=== PATIENT | female | born 2000 | race African-American/Black ===

== ENCOUNTER 2022-12-13 14:33 | Emergency (ER) | payer MEDICAID, SELFPAY ==
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
[2022-12-13 14:39] VITALS: BP 125/82; PULSE 86; RESP 16; TEMP 36.4; O2SAT 98; BMI 33.8
--- NOTE | 2022-12-13 14:39 | ECG_ITS ---
Test Reason : DIZZINESS Blood Pressure : / mmHG Vent. Rate : 073 BPM Atrial Rate : 073 BPM P-R Int : 144 ms QRS Dur : 094 ms QT Int : 384 ms P-R-T Axes : 048 050 021 degrees QTc Int : 423 ms Normal sinus rhythm with sinus arrhythmia Normal ECG No previous ECGs available Referred By: Ngoc Tripp Electronically Signed By:TITO LUA MD
[2022-12-13 15:01] LABS: MANUAL DIFF FLAG NO
[2022-12-13 15:03] LABS: Basophils Percent Auto 0.5 % (0-2); Eosinophils Absolute Auto 0.2 X10*3/uL (0.0-0.4); Eosinophils Percent Auto 2.6 % (0-4); Hematocrit 44.7 % (37.0-47.0); Imm Gran Abs Auto 0.01 X10*3/uL (0.00-0.03); Imm Gran Pct Auto 0.2 % (0.0-0.4); Lymphocytes Absolute Auto 2.6 X10*3/uL (1.2-4.9); Lymphocytes Percent Auto 40.2 % (20-40); Mean Corpuscular HGB Conc 33.6 g/dl (31.0-35.0); Mean Corpuscular Hemoglobin 28.1 pg (27.0-33.0); Mean Corpuscular Volume 83.9 fL (80.0-98.0); Mean Platelet Volume 10.3 fL (9.4-12.3); Monocytes Absolute Auto 0.5 X10*3/uL (0.1-1.2); Monocytes Percent Auto 7.2 % (2-11); Neutrophils Absolute Auto 3.2 x10*3/uL (2.0-8.3); Neutrophils Percent Auto 49.3 % (45-73); Platelet Count 233 X10*3/uL (160-400); Red Blood Count 5.33 X10*6/uL (4.20-5.50); Red Cell Distribution Width 12.4 % (11.0-16.0); White Blood Count 6.5 X10*3/uL (4.8-10.8)
[2022-12-13 15:06] LABS: Urine Pregnancy NEGATIVE (NEGATIVE)
[2022-12-13 15:07] LABS: UPreg QC Valid YES
[2022-12-13 15:18] LABS: COVID-19 Test Negative (Negative); IDNOW Serial# 16C4AD1C; IDNOW Serial# BCCEAD1C; Influenza A Negative (Negative); Influenza B2 Negative (Negative)
[2022-12-13 15:23] LABS: Alanine Aminotransferase 24 U/L (0-31); Albumin Level 4.1 g/dL (3.5-5.0); Alkaline Phosphatase 64 U/L (39-117); Anion Gap 16 (12-20); Aspartate Amino Transferase 18 U/L (5-31); Bilirubin Direct 0.2 mg/dL (0.0-0.5); Bilirubin Total 0.6 mg/dL (0.0-1.0); Blood Urea Nitrogen 9 mg/dL (9-16); Calcium 9.4 mg/dL (8.4-10.2); Carbon Dioxide 20 mmol/L (22-29); Chloride 111 mmol/L (96-108); Creatinine Clr Calc Pharmacy 140.5; Estimated Glomerular Filt Rate > 60; Glucose Random 88 mg/dL (60-115); Magnesium 1.7 mg/dL (1.6-2.6); Potassium 3.7 mmol/L (3.3-5.1); Sodium 143 mmol/L (135-145); Total Protein 6.5 g/dL (6.5-8.0)
[2022-12-13 15:30] LABS: Troponin-I High Sensitivity < 3.5 ng/L (<3.5-17.0)
[2022-12-13] MEDS: Butalb/Acetamin/Caff 50/325/40 TABLET 2 TAB PO (16:30)
== END 2022-12-13 16:52 | disposition home or self-care (01) ==
PROVIDERS: Physician Assistant; Emergency Provider Internal Medicine; PCP Internal Medicine Geriatric Medicine
DX: G43.909 Migraine, unspecified, not intractable, without status migrainosus (principal); B34.9 Viral infection, unspecified; R42 Dizziness and giddiness; F41.1 Generalized anxiety disorder; F43.0 Acute stress reaction; Z20.822 Contact with and (suspected) exposure to COVID-19; Z20.828 Contact with and (suspected) exposure to other viral communicable diseases; Z79.899 Other long term (current) drug therapy
CPT/HCPCS: 36415; 80048; 80076; 81025; 83735; 84484; 85025; 87502; 87635; 93005; 99284

== ENCOUNTER 2023-12-31 19:01 | Emergency (ER) | payer MEDICAID, SELFPAY ==
--- NOTE | ~2023-12-31 | US_ITS ---
EXAMINATION: US ABDOMEN LIMITED CLINICAL INFORMATION: Right upper quadrant pain. COMPARISON: None available. TECHNIQUE: Real-time imaging of the right upper quadrant abdominal viscera. FINDINGS: PANCREAS: The visualized portion of the pancreas head and body are normal, portion of the pancreatic body and tail, not visualized are obscured by bowel gas. LIVER: Normal. The liver is normal in size. The liver contour is normal. Parenchymal echogenicity is normal. No focal hepatic lesion. There is no intrahepatic biliary duct dilatation seen. GALLBLADDER: Gallbladder has been removed. COMMON BILE DUCT: Normal in caliber measuring 0.35 cm in diameter. RIGHT KIDNEY: Normal. No hydronephrosis. No renal calculi or focal parenchymal lesions. The kidney measures 9.4 cm in maximum dimension. FREE FLUID: None. US/US abdomen limited IMPRESSION: 1. No ultrasound explanation for patient's pain symptoms. 2. Gallbladder has been removed.
--- NOTE | ~2023-12-31 | CT_ITS ---
EXAMINATION: CT ABDOMEN AND PELVIS WITHOUT CONTRAST CLINICAL INFORMATION: Right flank pain. COMPARISON: None available. TECHNIQUE: Multidetector volumetric imaging was performed from the superior aspect of the liver through the pubic symphysis. Sagittal and coronal reformatted images were obtained on the technologist's workstation. This CT examination was performed using dose optimization techniques as appropriate, variously including the following: *Automated exposure control *Adjustment of mA and/or kV according to patient size (this includes techniques or standardized protocols for targeted exams where dose is matched to indication/reason for exam; i.e. extremities or head) *Use of iterative reconstruction technique DLP: 740 mGy-cm FINDINGS: LUNG BASES: The visualized lung bases are unremarkable. LIVER, GALLBLADDER, AND BILIARY TREE: The liver is normal in size, shape, and attenuation. No focal hepatic lesion or biliary ductal dilatation is present. There has been a prior cholecystectomy. PANCREAS: Unremarkable. SPLEEN: Unremarkable. ADRENAL GLANDS: Unremarkable. KIDNEYS AND URETERS: The kidneys are normal in size, shape, and attenuation. No hydronephrosis, hydroureter, or calculi seen. No perinephric stranding. BLADDER: Unremarkable. GASTROINTESTINAL TRACT: There are diverticula of the ascending and transverse colon with infiltrative change along diverticula of the cecum/proximal ascending colon with mild associated colonic thickening. The appendix is visualized and is within normal limits. ABDOMINAL WALL: No significant hernia is appreciated. LYMPH NODES: Normal. VASCULAR: Unremarkable. PELVIC VISCERA: The uterus is enlarged measuring up to 12.6 cm. OSSEOUS STRUCTURES: Unremarkable. CT/CT abdomen pelvis wo IV con IMPRESSION: 1. Findings consistent with diverticulitis of the cecum/proximal ascending colon. 2. Enlarged uterus. 3. Prior cholecystectomy. Fleischner guidelines were followed.
[2023-12-31 20:02] VITALS: BP 132/74; PULSE 91; RESP 16; TEMP 36.8; O2SAT 97; BMI 38.1
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
--- NOTE | 2023-12-31 20:41 | MHC.EDTECH ---
Patient brought into triage area,labs,and a urine sample obtained and sent to lab.
[2023-12-31 20:50] LABS: Basophils Percent Auto 0.5 % (0-2); Eosinophils Absolute Auto 0.1 X10*3/uL (0.0-0.4); Eosinophils Percent Auto 1.6 % (0-4); Hematocrit 41.5 % (37.0-47.0); Hemoglobin 13.6 g/dl (12.0-16.0); Imm Gran Abs Auto 0.01 X10*3/uL (0.00-0.03); Imm Gran Pct Auto 0.1 % (0.0-0.4); Lymphocytes Absolute Auto 2.5 X10*3/uL (1.2-4.9); Lymphocytes Percent Auto 32.9 % (20-40); MANUAL DIFF FLAG NO; Mean Corpuscular HGB Conc 32.8 g/dl (31.0-35.0); Mean Corpuscular Hemoglobin 27.2 pg (27.0-33.0); Mean Platelet Volume 9.3 fL (9.4-12.3); Monocytes Absolute Auto 0.6 X10*3/uL (0.1-1.2); Monocytes Percent Auto 7.5 % (2-11); Neutrophils Absolute Auto 4.4 x10*3/uL (2.0-8.3); Neutrophils Percent Auto 57.4 % (45-73); Platelet Count 355 X10*3/uL (160-400); Red Cell Distribution Width 13.6 % (11.0-16.0); White Blood Count 7.6 X10*3/uL (4.8-10.8)
[2023-12-31 20:51] LABS: Appearance Urine Clear; Color Urine Yellow; Glucose Urine UA Negative (Negative); Leukocyte Esterase Urine Small (1+) (Negative); Nitrite Urine Negative (Negative); PH 5.5 (5.0-9.0); UMIC TRIGGER UACC YES; Urine Blood Moderate (2+) (Negative); Urine Ketones Negative (Negative); Urine Protein Negative (Neg-Trace)
[2023-12-31 20:56] LABS: Bacteria Urine None Seen (None Seen); Hyaline Casts Urine 0-2 /LPF (0-2); RBC Urine >20 /HPF (0-2); Squamous Epithelial Cell Urine 0-2 /HPF (0-2); UACC Culture Trigger YES
[2023-12-31 21:03] LABS: Alanine Aminotransferase 26 U/L (0-31); Alkaline Phosphatase 87 U/L (39-117); Anion Gap 13 (12-20); Aspartate Amino Transferase 17 U/L (5-31); Bilirubin Total 0.2 mg/dL (0.0-1.0); Blood Urea Nitrogen 15 mg/dL (9-16); Calcium 9.4 mg/dL (8.4-10.2); Carbon Dioxide 24 mmol/L (22-29); Chloride 109 mmol/L (96-108); Estimated Glomerular Filt Rate > 60; Glucose Random 90 mg/dL (60-115); Lipase 31 U/L (8-78); Sodium 142 mmol/L (135-145); Total Protein 7.3 g/dL (6.5-8.0)
[2023-12-31 23:22] VITALS: BP 145/73; PULSE 69; RESP 16; TEMP 36.9; O2SAT 98
[2023-12-31] MEDS: Morphine Sulfate Immed Release 15 MG TABLET PO (23:24)
[2024-01-01] MEDS: Piperacillin Sodium/Tazobactam 3.375 GM in 0.9 % Sodium Chloride 50 ML IV (00:47)
[2024-01-01] MEDS: Ketorolac Tromethamine 30 MG/ML VIAL IVPUSH (00:47)
[2024-01-01] MEDS: 0.9 % Sodium Chloride 1,000 ML 999 ML IV (00:50)
[2024-01-01 00:57] LABS: Lactic Acid 1.8 mmol/L (0.5-2.0)
--- NOTE | 2024-01-01 01:47 | PC.NURSE ---
PT in bed, moaning and reporting 10/10 pain. notified, IV placed, fluids, abx and pain meds administered per orders.
== END 2024-01-01 03:49 | disposition home or self-care (01) ==
PROVIDERS: Physician Assistant Medical; Emergency Provider Internal Medicine; PCP Internal Medicine Geriatric Medicine
DX: K57.32 Diverticulitis of large intestine without perforation or abscess without bleeding (principal); R10.31 Right lower quadrant pain; R10.9 Unspecified abdominal pain; Z90.49 Acquired absence of other specified parts of digestive tract
CPT/HCPCS: 36415; 74176; 76705; 80053; 81001; 83605; 83690; 85025; 87086; 96374; 96375; 99284; J1885; J2543

== ENCOUNTER 2024-03-24 14:32 | Outpatient (REF) | payer MEDICAID, SELFPAY ==
[2024-03-24 16:18] LABS: Hematocrit 41.7 % (37.0-47.0); Hemoglobin 13.8 g/dl (12.0-16.0); Mean Corpuscular HGB Conc 33.1 g/dl (31.0-35.0); Mean Corpuscular Hemoglobin 27.8 pg (27.0-33.0); Mean Corpuscular Volume 84.1 fL (80.0-98.0); Mean Platelet Volume 10.6 fL (9.4-12.3); Platelet Count 284 X10*3/uL (160-400); Red Blood Count 4.96 X10*6/uL (4.20-5.50); Red Cell Distribution Width 14.1 % (11.0-16.0); White Blood Count 6.7 X10*3/uL (4.8-10.8)
[2024-03-24 16:37] LABS: Alanine Aminotransferase 22 U/L (0-31); Albumin Level 4.3 g/dL (3.5-5.0); Alkaline Phosphatase 59 U/L (39-117); Anion Gap 14 (12-20); Aspartate Amino Transferase 16 U/L (5-31); Bilirubin Total 0.6 mg/dL (0.0-1.0); Blood Urea Nitrogen 13 mg/dL (9-16); Calcium 9.6 mg/dL (8.4-10.2); Carbon Dioxide 22 mmol/L (22-29); Chloride 109 mmol/L (96-108); Cholesterol 176 mg/dL (<200); Estimated Glomerular Filt Rate > 60; Glucose Random 91 mg/dL (60-115); HDL Cholesterol 42 mg/dL (>40); LDL Cholesterol Calculated 116 mg/dL (<100); Potassium 3.8 mmol/L (3.3-5.1); Sodium 141 mmol/L (135-145); Total Protein 7.3 g/dL (6.5-8.0); Triglycerides 94 mg/dL (<150)
[2024-03-24 16:48] LABS: Estimated Average Glucose 100 mg/dL; Hemoglobin A1c % 5.1 % (<6.0)
[2024-03-24 16:58] LABS: TSH reflex Free T4 0.96 uIU/mL (0.32-4.0); Vitamin D 25-OH Total 37.4 ng/mL (>30)
[2024-03-25 10:15] LABS: Syphilis Screen Nonreactive (Nonreactive)
[2024-03-25 10:27] LABS: HBc Num1 0.11 S/CO (0.00-0.79); HBsAGNum1 0.22 S/CO (0.00-0.99); HIV AB/AG Nonreactive (Nonreactive); HIV Num 1 0.04 S/CO (0.00-0.99); Hepatitis B Core Antibody Nonreactive (Nonreactive); Hepatitis B Surface Antigen Negative (Negative); ~HepC Num1 0.09 S/CO (0.00-0.79); ~Hepatitis C Antibody Nonreactive (Nonreactive)
[2024-03-26 21:53] LABS: TS Negative Control Passed; TS Panel A 0; TS Panel B 0; TS Positive Control Passed; TSpotTB Negative (Negative)
== END 2024-03-24 14:33 | disposition home or self-care (01) ==
LOC: HO.HHCL 14:32
PROVIDERS: Visit Provider Student in an Organized Health Care Education/Training Program
DX: Z00.00 Encounter for general adult medical examination without abnormal findings (principal)
CPT/HCPCS: 36415; 80053; 80061; 82306; 83036; 84443; 85027; 86481; 86704; 86780; 86803; 87340; 87389

== ENCOUNTER → 2024-09-26 11:21 | Outpatient (BNVA) | payer MEDICAID, SELFPAY | PROVIDERS: PCP Student in an Organized Health Care Education/Training Program; Visit Provider Physician Assistant Surgical ==

== ENCOUNTER 2024-10-09 07:53 | Outpatient (AMB) | payer MEDICAID, SELFPAY ==
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
[2024-10-09 10:29] VITALS: BMI 38.8
== END 2024-10-09 10:59 | disposition home or self-care (01) ==
LOC: HO.HBS 07:53
PROVIDERS: PCP Student in an Organized Health Care Education/Training Program; Visit Provider Surgery
DX: E66.812 Obesity, class 2 (principal); E66.09 Other obesity due to excess calories; Z68.38 Body mass index [BMI] 38.0-38.9, adult; K21.9 Gastro-esophageal reflux disease without esophagitis
CPT/HCPCS: 99204

== ENCOUNTER 2024-10-11 09:05 | Day surgery (SDC) | payer MEDICAID, SELFPAY ==
[2024-10-11 09:34] VITALS: BMI 38.9
[2024-10-11 09:45] VITALS: BP 122/57; PULSE 67; RESP 16; TEMP 36.4; O2SAT 98
[2024-10-11 09:52] LABS: UPreg QC Valid YES; Urine Pregnancy NEGATIVE (NEGATIVE)
[2024-10-11] MEDS: Lactated Ringers 1,000 ML 80 ML IVCONT (09:56)
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
--- NOTE | 2024-10-11 10:01 | MHC.SHP ---
Pre-Procedural Eval Section A - 24 Hr Update-Section A only Date of Service: 10/11/24 The patient is an INPATIENT: No The patient has been examined within 24 hours of the surgical procedure. The History & Physical has been completed within 30 days and I have reviewed it.: No Section B - Complete if H&P > 30 days Chief Complaint: Morbid (severe) obesity due to excess calories Relevant Family History (Specify if Yes): No Relevant Social History: None Present Medications: None Medical History: No relevant PMH History of Previous Operations: No relevant previous surgery Allergies: Allergies Allergy/AdvReac Type Severity Reaction Status Date / Time ziprasidone [From GEODON] Allergy Unknown UNK Verified 10/09/24 10:17 giadon Allergy Unknown seizure-like Uncoded 10/09/24 10:17 activity Review of Systems Sugical H&P ROS: Negative: Constitution, Cardiovascular, Respiratory, Neurological, Psychiatric, Hem-Onc, Allergic/Immunologic, Gastrointestinal, Genitourinary, Musculoskeletal, Integumentary, Endocrine and Eyes/Ears/Nose/Throat Exam Surgical H&P Exam: Normal: HEENT, Normal: Heart, Normal: Lungs, Normal: Extremities, Normal: Abdomen, Normal: Skin and Normal: Neurological Plan Diagnosis/Plan: Unchanged (EGD to assess the stomach's anatomy. Risks of bleeding and perforation were discussed with the patient and she is in agreement with the plan.) I have reviewed the history and physical and performed a pertinent physical examination on my patient. No changes have occurred unless specified. Time Spent With Patient Time: Total time managing care of this patient today ____ minutes.
--- NOTE | 2024-10-11 10:05 | PM.OP ---
Brief Operative Note Date of Service: 10/11/24 Pre-op diagnosis: Morbid obesity Post-op diagnosis: same (Duodenitis and gastritis) Procedure: PROCEDURE DATE: 10/11/2024 PREOPERATIVE DIAGNOSIS: Morbid obesity POSTOPERATIVE DIAGNOSIS: ?Same as above. 1) Duodenitis, 2) gastritis PROCEDURE: [id number] with biopsies Surgeon: ?Donta Yoo M.D.. Ph.D. Drupal Php Developer: None ? Anesthesia: IV sedation Estimated blood loss: ?Minimal FINDINGS AND PROCEDURE: ? OPERATIVE INDICATIONS: ?The patient is a 24 year old female known to me who is interested in bariatric surgery. Based on this information I recommended an upper endoscopy to evaluate the stomach's anatomy. Risks and complications of the surgery were discussed with the patient in advance particularly the possibility of perforation or bleeding that may require surgical intervention. The patient understood the risks and was in agreement with the plan. ? PROCEDURE: After informed consent was obtained by the patient, the patient was ?transferred to the Operating Room and was placed in the supine position.? After successful induction of IV sedation, a mouth block was inserted and the patient was placed in the left lateral decubitus position. An upper endoscopy was performed next, the oropharynx and esophagus appeared within the normal limits. There was no hiatal hernia. The z-line was smooth. Two biopsies were obtained from the distal esophagus 2-3 cm proximal to the GE junction and two additional biopsies from the GE junction. The stomach was entered and it appeared to be of normal size. There was diffuse erythema suggestive of gastritis at distal antrum. There was no stricture or ulcer. A biopsy was obtained from the gastric fundus and antrum. No significant bleeding was noted from any of the biopsy sites. Retroflexion of the scope revealed a normal GE junction with erythema at the gastric fundus. The scope was then advanced into the duodenum which appeared to be also inflammed with erythema suggestive of duodenitis. At that point the duodenum ?and the stomach were decompressed and the scope was withdrawn from the patient's mouth. The patient extubated and was transferred in stable condition to the Recovery Room for further care. I was present and performed all steps of the procedure. There were no residents to assist with this case. Donta Yoo M.D., Ph.D. Surgeon: Modesto Yoo MD Anesthesia: MAC Was an Drupal Php Developer used for this Procedure?: No Estimated blood loss (mL): 0 IV fluids (mL): 400 Urine output (mL): 0 (No Ash to record output) Pathology: other (1) antrum x1, 2) fundus x1, 3) GE junction x2, 4) distal esophagus x2) Condition: stable Disposition: PACU
[2024-10-11 10:32] VITALS: BP 108/49; PULSE 99; RESP 24; TEMP 36.9; O2SAT 95
[2024-10-11 10:47] VITALS: BP 119/62; PULSE 80; RESP 18; TEMP 36.9; O2SAT 99
== END 2024-10-11 11:16 | disposition home or self-care (01) ==
PROVIDERS: Anesthesiology; PCP Student in an Organized Health Care Education/Training Program; Visit Provider Surgery
PROC: 0DJ08ZZ Inspection of Upper Intestinal Tract, Via Natural or Artificial Opening Endoscopic (ICD-10-PCS; CPT 43235; principal; 2024-10-11 10:10)
DX: E66.9 Obesity, unspecified (principal); Z68.30 Body mass index [BMI] 30.0-30.9, adult; K29.80 Duodenitis without bleeding; K29.50 Unspecified chronic gastritis without bleeding; K21.9 Gastro-esophageal reflux disease without esophagitis; J45.909 Unspecified asthma, uncomplicated; F41.8 Other specified anxiety disorders; F31.9 Bipolar disorder, unspecified; Z79.85 Long-term (current) use of injectable non-insulin antidiabetic drugs; Z88.8 Allergy status to other drugs, medicaments and biological substances; Z90.49 Acquired absence of other specified parts of digestive tract; F17.290 Nicotine dependence, other tobacco product, uncomplicated
CPT/HCPCS: 43239; 81025; 88305; 88313; 88342; J1596; J2003; J2250; J2704

== ENCOUNTER → 2024-10-11 09:05 | Outpatient (BNV) | payer MEDICAID, SELFPAY | PROVIDERS: PCP Student in an Organized Health Care Education/Training Program; Visit Provider Surgery | DX: K29.70 Gastritis, unspecified, without bleeding (principal); K21.9 Gastro-esophageal reflux disease without esophagitis | CPT/HCPCS: 43239 ==

== ENCOUNTER 2024-10-25 10:04 | Outpatient (REF) | payer MEDICAID, SELFPAY ==
[2024-10-25 11:13] LABS: MANUAL DIFF FLAG NO
[2024-10-25 11:29] LABS: Basophils Percent Auto 0.6 % (0-2); Eosinophils Absolute Auto 0.2 X10*3/uL (0.0-0.4); Eosinophils Percent Auto 2.2 % (0-4); Hematocrit 43.1 % (37.0-47.0); Hemoglobin 14.5 g/dl (12.0-16.0); Imm Gran Abs Auto 0.01 X10*3/uL (0.00-0.03); Imm Gran Pct Auto 0.1 % (0.0-0.4); Lymphocytes Absolute Auto 2.3 X10*3/uL (1.2-4.9); Lymphocytes Percent Auto 31.5 % (20-40); Mean Corpuscular HGB Conc 33.6 g/dl (31.0-35.0); Mean Corpuscular Hemoglobin 28.5 pg (27.0-33.0); Mean Corpuscular Volume 84.7 fL (80.0-98.0); Mean Platelet Volume 10.3 fL (9.4-12.3); Monocytes Absolute Auto 0.5 X10*3/uL (0.1-1.2); Monocytes Percent Auto 7.4 % (2-11); Neutrophils Absolute Auto 4.2 x10*3/uL (2.0-8.3); Neutrophils Percent Auto 58.2 % (45-73); Platelet Count 245 X10*3/uL (160-400); Red Blood Count 5.09 X10*6/uL (4.20-5.50); Red Cell Distribution Width 12.9 % (11.0-16.0); White Blood Count 7.2 X10*3/uL (4.8-10.8)
[2024-10-25 11:35] LABS: Estimated Average Glucose 105 mg/dL; Hemoglobin A1C 127.2253 umol/L; Hemoglobin A1c % 5.3 % (<6.0); Total Hemoglobin (HGBA1C) 3673.5875 umol/L
[2024-10-25 12:09] LABS: Alanine Aminotransferase 36 U/L (0-31); Albumin Level 4.2 g/dL (3.5-5.0); Alkaline Phosphatase 70 U/L (39-117); Anion Gap 8 (12-20); Aspartate Amino Transferase 24 U/L (5-31); Bilirubin Total 0.4 mg/dL (0.0-1.0); Blood Urea Nitrogen 14 mg/dL (9-16); C Reactive Protein 0.29 mg/dL (< or = 0.50); Calcium 8.8 mg/dL (8.4-10.2); Carbon Dioxide 25 mmol/L (22-29); Chloride 112 mmol/L (96-108); Cholesterol 139 mg/dL (<200); Estimated Glomerular Filt Rate > 60; Glucose Random 92 mg/dL (60-115); HDL Cholesterol 36 mg/dL (>40); Iron 62 mcg/dL (30-160); LDL Cholesterol Calculated 87 mg/dL (<100); Percent Iron Saturation 20 % (15-50); Potassium 4.1 mmol/L (3.3-5.1); Sodium 141 mmol/L (135-145); Total Iron Binding Capacity 315 mcg/dL (228-428); Triglycerides 83 mg/dL (<150); Unsaturated Iron Binding 253 ug/dL
[2024-10-25 12:22] LABS: Ferritin 43 ng/mL (10-122); TSH reflex Free T4 0.76 uIU/mL (0.32-4.0); Vitamin D 25-OH Total 21.4 ng/mL (>30)
[2024-10-25 12:33] LABS: Folate 12.6 ng/mL (> or = 4.0); Vitamin B12 455 pg/mL (200-900)
[2024-10-25 12:36] LABS: Insulin 12 uU/mL (2-29)
[2024-10-30 05:38] LABS: Zinc 80 mcg/dL (60-130)
[2024-10-30 17:19] LABS: Vitamin A 51 mcg/dL (38-98)
[2024-11-03 16:49] LABS: Vitamin B1 13 nmol/L (8-30)
== END 2024-10-25 10:05 | disposition home or self-care (01) ==
LOC: HO.US 10:04
PROVIDERS: PCP Student in an Organized Health Care Education/Training Program; Visit Provider Surgery
DX: E66.9 Obesity, unspecified (principal); Z68.30 Body mass index [BMI] 30.0-30.9, adult
CPT/HCPCS: 36415; 76700; 76981; 80053; 80061; 82306; 82607; 82728; 82746; 83036; 83525; 83540; 84425; 84443; 84590; 84630; 85025; 86140

== ENCOUNTER → 2024-10-25 10:08 | Outpatient (BNV) | payer MEDICAID, SELFPAY | PROVIDERS: PCP Student in an Organized Health Care Education/Training Program; Visit Provider Radiology Diagnostic Radiology | DX: K76.0 Fatty (change of) liver, not elsewhere classified (principal); E66.9 Obesity, unspecified | CPT/HCPCS: 76700 ==

== ENCOUNTER → 2024-10-26 10:09 | Outpatient (BNVA) | payer OTHER, MEDICAID, SELFPAY | PROVIDERS: PCP Student in an Organized Health Care Education/Training Program; Visit Provider Counselor Mental Health ==

== ENCOUNTER → 2024-10-26 10:09 | Outpatient (AMB) | payer OTHER, SELFPAY ==
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
== END ==
PROVIDERS: PCP Student in an Organized Health Care Education/Training Program; Visit Provider Counselor Mental Health
DX: F33.1 Major depressive disorder, recurrent, moderate (principal); F41.9 Anxiety disorder, unspecified
CPT/HCPCS: 90834

== ENCOUNTER → 2024-10-27 14:02 | Outpatient (REF) | payer OTHER, SELFPAY ==
--- NOTE | ~2024-10-27 | XR_ITS ---
EXAMINATION: XR CHEST CLINICAL INFORMATION: E66.9 - Obesity, unspecified COMPARISON: 11/12/2017 TECHNIQUE: 2 views of the chest were obtained. FINDINGS: No focal consolidation, pulmonary edema, or pleural effusion. Stable cardiomediastinal silhouette. XR/XR chest 2V IMPRESSION: No acute cardiopulmonary findings. Electronically signed by: Nghia Lawler MD 10/28/2024 11:27 AM [facility]
--- NOTE | 2024-10-27 14:22 | ECG_ITS ---
Test Reason : OBS Blood Pressure : / mmHG Vent. Rate : 063 BPM Atrial Rate : 063 BPM P-R Int : 156 ms QRS Dur : 090 ms QT Int : 396 ms P-R-T Axes : 050 052 038 degrees QTc Int : 405 ms Normal sinus rhythm Normal ECG When compared with ECG of 13-DEC-2022 14:45, No significant change was found Referred By: Modesto Yoo Electronically Signed By:AVA TAVAREZ
== END ==
LOC: HO.CARD 14:02
PROVIDERS: PCP Student in an Organized Health Care Education/Training Program; Visit Provider Surgery
DX: E66.9 Obesity, unspecified (principal); Z68.30 Body mass index [BMI] 30.0-30.9, adult
CPT/HCPCS: 71046; 93005

== ENCOUNTER → 2024-10-27 14:22 | Outpatient (BNV) | payer MEDICAID, SELFPAY | PROVIDERS: PCP Student in an Organized Health Care Education/Training Program; Visit Provider Internal Medicine | DX: E66.9 Obesity, unspecified (principal); Z68.30 Body mass index [BMI] 30.0-30.9, adult | CPT/HCPCS: 93010 ==

== ENCOUNTER 2024-12-04 10:19 | Outpatient (AMB) | payer OTHER, SELFPAY ==
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
--- OUTSIDE RECORDS SUMMARY | 2024-12-04 14:56 | XMS_ITS | Clinical Summary ---
[facility] Address [address] [place] [address] Care Team Providers Care Box Stacker Name Role Phone Unavailable Primary Care Provider Unavailabl e Social History Tobacco Use Types Packs/Day Years Used Date Smoking Tobacco: Never Assessed Sex and Gender Information Value Date Recorded Sex Assigned at Not on file Gender Identity Not on file Sexual Orientation Not on file Plan of Treatment Health Maintenance Due Date Last Done Comments HPV Vaccines (1 - 3-dose series) 2013 DTaP,Tdap,and Td Vaccines (1 - Tdap) 2017 Hepatitis B Vaccines (1 of 3 - 19+ 3-dose series) 2017 Cervical Cancer Screening: P ap Smear 2019 COVID-19 Vaccine ( - 2023-2 5 season) 2024 Influenza Vaccine (#1) 2024 HIB Vaccines Aged Out No longer eligi ble based on patient's age to complete this topic Hepatitis A Vaccines Aged Out No long er eligible based on patient's age to complete this topic IPV Vaccines Aged Out No longer eligi ble based on patient's age to complete this topic MMR Vaccines Aged Out No longer eligi ble based on patient's age to complete this topic Meningococcal ACWY Vaccine Aged Out N o longer eligible based on patient's age to complete this topic Pneumococcal Vaccine: Pediat rics (0 to 5 Years) and At-Risk Patients (6 to 64 Years) Aged Out No longer eligible b ased on patient's age to complete this topic RSV Immunization Patients Un miriam 20 months Aged Out No longer eligible b ased on patient's age to complete this topic Varicella Vaccines Aged Out No longer eligible based on patient's age to complete this topic
--- OUTSIDE RECORDS SUMMARY | 2024-12-04 14:56 | XMS_ITS | Clinical Summary ---
Author Organization [employer] Address [address] [place] [address] Care Team Providers Care Mate First Name Role Phone Mary Doty MD Primary Care Pro vider Allergies Active Allergy Reactions Criticality Noted Date Comments Ziprasidone 02/23/2024 Tongue swelling ,movement problem Medications * This document contains information received from the source organization and may not represent a complete record from that organization. hydrOXYzine pamoate (Vistaril) 25 MG capsule Take 1 capsule (25 mg) by mouth every 8 (eight) hours if needed for anxiety. 30 capsule 4 Active Semaglutide-We ight Management (Wegovy) 0.25 MG/0.5ML solution auto-injector Inject 0.25 mg subcutaneously once a week for weeks 1-4 then to increase to 0.5 mg 2 mL 3 4 Active nicotine polacrilex (Nicotine Mini) 2 MG lozenge Dissolve 1 lozenge (2 mg) in the mouth every 2 (two) hours if needed for smoking cessation. 100 lozenge 4 Active Active Problems Problem Noted Date Diagnosed Date Bipolar 1 disorder (CMS/HCC) Most recent episode depressed, moderate 05/16/2024 depression (moderate) 05/16/2024 Health care maintenance 03/29/2024 Preeclampsia 02/24/2024 Tobacco use 02/24/2024 History of diverticulosis 02/24/2024 History of cholecystectomy 03/27/2019 Obesity (BMI 35.0-39.9 without comorbidity) 11/[address] 05/06/2018 Seasonal allergic reaction 05/06/2018 Attention deficit hyperactivity disorder 012 Resolved Problems Problem Noted Date Diagnosed Date Resolved Date Elevated blood pressure reading 03/29/2024 06/30/2024 Strep throat 03/29/2024 06/30/2024 Encounters * This document contains information received from the source organization and may not represent a complete record from that organization. Date Type Department Care Team Description 11/22/[address] [phone] Alicia Solis, RN Care Management ([facility] TC #3-lvm) 10/27/2024 Orders Only [facility] External Provider, [facility] 10/26/[address] [address] Alicia Solis, [place] Care Management ([facility] TC #2-lvm) 10/13/[address] [phone] Caron Alvarez RN Med Refill (Wegovy notification) 09/27/2024 Telephone [facility] [address] [place] [address] Alicia Solis, [place] Care Management ([facility] TC #1-lvm) 09/18/2024 Travel from Last 3 Months Immunizations Name Administration Dates Next Due DTaP 04/19/2002 HPV, Quadrivalent 06/13/2013,05/13/2012,03/12/20 11 Hep A, ped/adol, 2 dose 06/13/2013,05/13/2012 Hep B, Adolescent or Pediatric 03/26/2011,2010,07/15/2006 IPV 01/16/2011,07/15/2006,04/19/2002 Influenza injectable quadriv alent preservative free 12/24/2021,09/05/2020 Influenza, seasonal, injecta ble, preservative free 09/01/2024 MMR 04/20/2021,07/15/2006,04/19/2002 Meningococcal MCV4P ACYW-135 03/12/2011,01/17/20 11 Pfizer Covid-19 Vaccine 12+ 09/01/2024,0 02/23/2024,01/12/2023,12/14 RSV Bivalent 12/02/2023 TD (adult), 2 Lf tetanus tox oid, preservative free, adsorbed 01/16/2011,07/15/2006 Tdap 10/26/2023,,08/12/2019,06/07 Varicella 01/16/2011,08/11/2004 Family History Medical History Relation Name Comments heart dx Father Lupus Father's Sister Diabetes Mother Prostate cancer Paternal Grandfather Relation Name Status Comments Father Father's Sister Mother Paternal Grandfather Social History Tobacco Use Types Packs/Day Years Used Date Smoking Tobacco: Every Day Cigarettes Tobacco Cessation:Ready to Q uit: Not Asked; Counseling Given: Not Answered Comments:Started smoking at 13 y of age until now ,initially smoking cigarettes 1-2 a day,last year 10 cig a day ,then stopped during preg and now vaping 2-3 times a day Depression Answer Date Recorded Patient Health Questionnaire-9 Score 16 02/23/2024 Patient Health Questionnaire-9 Score 16 02/23/2024 Last PHQ-9: Questionnaire Data Not on file 0 02/23/2024 Housing Stability Answer Date Recorded What is your housing situation today? I have ginny helms 12/17/[address] you li ve. Do you have problems with any of the following? None of the above 12/17/2023 Food Insecurity Answer Date Recorded Within the past 12 months, y ou worried that your food would run out before you got money to buy more: Never True 12/17/2023 Within the past 12 months,th e food you bought just didn't last and you didn't have enough money to get more: Never True 07/2024 Transportation Answer Date Recorded In the past 12 months, has l ack of transportation kept you from medical appts, meetings, work or from getting things needed for daily living? No 12/17/2023 Utilities Answer Date Recorded In the past 12 months, has t he electric, gas, oil or water company threatened to shut off services in your home? No 12/17/2023 Depression Answer Date Recorded Patient Health Questionnaire-2 Score 4 02/23/2024 Internet Access Answer Date Recorded Internet Access Q1 I am not sure 07/10/2024 Internet Access Q2 Not on file 07/10/2024 Comments No Sex and Gender Information Value Date Recorded Sex Assigned at Female 09/07/2022 10:22 AM EDT Legal Sex Female 10:22 AM EDT Gender Identity Female 09/07/2022 10:22 AM EDT Sexual Orientation Bisexual 02/23/2024 9: 49 AM EDT Last Filed Vital Signs Vital Sign Reading Time Taken Comments Blood Pressure 95/50 09/01/2024 12:29 PM EDT Pulse 82 09/01/2024 12:29 PM EDT Temperature 36.7 ??C (98.1 ??F) 09/01/2024 12:29 PM E DT Respiratory Rate 20 09/01/2024 12:29 PM EDT Oxygen Saturation 99% 09/01/2024 12:29 PM EDT Inhaled Oxygen Concentration - - Weight 97.8 kg (215 lb 9.6 oz) 09/01/2024 12:29 PM EDT Height 157.5 cm (5' 2 ) 09/01/2024 12:29 PM EDT Body Mass Index 39.43 09/01/2024 12:29 PM EDT Plan of Treatment Health Maintenance Due Date Last Done Comments Pneumococcal Vaccine: Pediatrics (0 to 5 Years) and At-Risk Patients (6 to 64 Years) (1 of 2 - PCV) 01/22/2004 Alcohol/Substance Use Screening 2010 Family Planning (PISQ) 2013 Pap Smear 2019 Depression Monitoring (PHQ-9) 08/24/2024 02/23/2024, 02/23/2024 Depression Screening 02/22/2025 02/23/2024, 02/23/20 24 Tobacco Screening 02/22/2025 02/23/2024 SDOH Screening 05/19/2025 05/19/2024 Lipid Panel 10/25/2029 10/25/2024, 03/24/2024 DTaP/Tdap/Td Vaccines (8 - Td or Tdap) 10/26/2033 10/26/2023, 02/10/2021, 08/12/2019, Additional history exists Zoster Vaccines (1 of 2) 01/22/2048 RSV Patients and Patients Aged 60 years or older (1 - 1-dose 75+ series) 2073 12/02/2023 IPV Vaccines Completed 01/16/2011, 05/2006, 04/19/2002 Meningococcal Vaccine Aged Out 03/12/2011, 011 No longer eligible based on patient's age to complete this topic Hepatitis B Vaccines Completed 03/26/2011, 01/16/2011, 07/15/2006 HPV Vaccines Completed 06/13/2013, 04/2012, 03/12/2011 Hepatitis A Vaccines Completed 06/13/2013, 05/13/20 12 HIV Screening Completed 03/24/2024, 05/09, 01/03/2020 Hepatitis C Screening Completed 03/24/2024 COVID-19 Vaccine Completed 09/01/2024, , 01/12/2023, Additional history exists Influenza Vaccine Completed 09/01/2024, , 09/05/2020 HIB Vaccines Aged Out No longer eligi ble based on patient's age to complete this topic RSV under 20 months Aged Out No longe r eligible based on patient's age to complete this topic Rotavirus Vaccines Aged Out No longer eligible based on patient's age to complete this topic Procedures Procedure Name Priority Date/Time Associated Diagnosis Comments XR CHEST 2 VIEWS Routine 10/27/2024 2:10 PM EST VITAMIN B1 Routine 10/25/2024 11:11 AM EST VITAMIN A Routine 10/25/2024 11:11 AM EST ZINC Routine 10/25/2024 11:11 AM EST INSULIN Routine 10/25/2024 11:11 AM EST VITAMIN B12/FOLATE, SERUM PANEL Routine 10/25/2024 11:11 AM EST TSH W/REFLEX TO FT4 Routine 10/25/2024 1 1:11 AM EST VITAMIN D,25-OH,TOTAL,IA Routine 10/25/2024 11:11 AM EST FERRITIN Routine 10/25/2024 11:11 AM EST LIPID PANEL, STANDARD Routine 10/25/2024 11:11 AM EST C-REACTIVE PROTEIN Routine 10/25/2024 11 :11 AM EST IRON AND TOTAL IRON BINDING CAPACITY Routine 10/25/2024 11:11 AM EST COMPREHENSIVE METABOLIC PANEL Routine 10/25/2024 11:11 AM EST HEMOGLOBIN A1C Routine 10/25/2024 11:11 AM EST CBC WITH AUTO DIFFERENTIAL Routine 10/25/2024 11:11 AM EST HEMATOXYLIN AND EOSIN STAIN Routine 10/11/2024 10:17 AM EST HCG, QL, URINE Routine 10/11/2024 9:32 AM EST HEPATITIS C AB W/REFL TO HCV RNA, QN, PCR Routine 03/24/2024 2:34 PM EDT Annual physical exam HIV 1/2 ANTIGEN/ANTIBODY, FOURTH GENERATION W/RFL Routine 03/24/2024 2:34 PM EDT Annual physical exam from Last 3 Months or Most Recently Relevant to Health Maintenance Results * XR Chest 2 Views (10/27/2024 2:10 PM EST) Anatomical Region Laterality Modality Chest Radiographic Rea ging 10/27/2024 2:10 PM EST Narrative 10/28/2024 11:30 AM EST ? [facility] ?[address] ?[place] [address] ?XRay Report ? Signed ? Patient: Torres,Renata ?MR#: [id number] ? : 2000 ?Acct:[id number] ? Age/Sex: 24 / F ?ADM Date: 12/20/24 ? Loc: HO.CARD ? Attending Dr: Modesto Yoo MD ? Ordering Physician: Modesto Yoo MD ?? Date of Service: 10/27/24 ?? Procedure(s): XR chest 2V ?? Accession Number(s): [id number] ? cc: Mary Doty MD; Modesto Yoo MD ? EXAMINATION: ?? XR CHEST ? CLINICAL INFORMATION: ?? E66.9 - Obesity, unspecified ? COMPARISON: ?? 11/12/2017 ? TECHNIQUE: ?? 2 views of the chest were obtained. ? FINDINGS: ?? No focal consolidation, pulmonary edema, or pleural effusion. ? Stable cardiomediastinal silhouette. ? XR/XR chest 2V ?? IMPRESSION: ?? No acute cardiopulmonary findings. ? Electronically signed by: ??Nghia Lawler MD ??10/28/2024 11:27 AM ?? EST RP ? Dictated By: ?Nghia Lawler MD ? Signed By: ?<Electronically signed by Nghia Lawler MD in OV> ? 10/28/24 1127 ? DD/ 1410 ? TD/TT: 10/27/24 1421 ? Deburrer Strip: DM ? Procedure Note [place], Image - 10/28/2024 [place] [address] XRay Report Signed Patient: Arnulfo Torres#: [id number] : 2000Acct:[id number] Age/Sex: 24 / FADM Date: 10/27/24 Loc: ANASTASIA Attending Dr: Modesto Yoo MD Ordering Physician: Modesto Yoo MD Date of Service: 10/27/24 Procedure(s): XR chest 2V Accession Number(s): [id number] cc: Mary Doty MD; Modesto Yoo MD EXAMINATION: XR CHEST CLINICAL INFORMATION: E66.9 - Obesity, unspecified COMPARISON: 11/12/2017 TECHNIQUE: 2 views of the chest were obtained. FINDINGS: No focal consolidation, pulmonary edema, or pleural effusion. Stable cardiomediastinal silhouette. XR/XR chest 2V IMPRESSION: No acute cardiopulmonary findings. Electronically signed by: Nghia Lawler MD 10/28/2024 11:27 AM EST Dictated By: Nghia Lawler MD Signed By: <Electronically signed by Nghia Lawler MD inOV> 10/28/24 1127 DD/ 1410 TD/TT: 10/27/24 1421 Deburrer Strip: DM [facility] External Provider IMG XR PROCEDURES Edited Result - Final * (ABNORMAL) Vitamin D, 25-Hydroxy, Total, Immunoassay (10/25/2024 11:11 AM EST) Vitamin D 25-OH Total 21.4(L) >30 ng/mL [facility] Comment:Health Based Referen ce Values*< 20 ng/mL Ccoiggudd08-14 ng/mL Insufficient> 30 ng/mL Sufficient*Shelly COLE. N Engl J Med. 2007;357:266-280Care must be taken in interpreting Vitamin D results fromdifferent laboratories and methodologies. Published datademonstrated that results from patients undergoinghemodialysis may show a negative bias when tested withvarious automated 25-OH vitamin D assays when compared toLC-MS/MS.When testing samples from patients whose predominant form ofVitamin D is Vitamin D2, such as patients receiving VitaminD2 supplementation, results that are subtherapeutic shouldbe confirmed with another method such as LC-MS/MS. 10/25/2024 11:1 1 AM EST 10/25/2024 11:11 AM EST Generic External Data Provider LAB BLOOD ORDERAB LES Final Result [facility] [address], [place] [phone] * Vitamin B12 (Cobalamin) and Folate Panel, Serum (10/25/2024 11:11 AM EST) Vitamin B12 455 200 - 900 pg/mL [facility] Comment:NORMAL 200-900 PG/ML INDETERMINATE 160-199 PG/ML DEFICIENT < 160 PG/ML Folate 12.6 > or = 4.0 ng/mL [facility] Comment:Reference Values:> o r = 4.0 ng/mL< 4.0 ng/mL suggests folate deficiency Methotrexate, aminopterin and folinic acid(leucovorin) are chemotherapeutic agents whose molecularstructures are similar to folate; therefore, the Architectfolate assay cannot be used for patients using these drugs. 10/25/2024 11:1 1 AM EST 10/25/2024 11:11 AM EST Generic External Data Provider LAB BLOOD ORDERAB LES Final Result Performing Organization Address [facility]/ZIP Co de Phone Number [facility] [address] [place] [phone] * TSH with Reflex to Free T4 (10/25/2024 11:11 AM EST) TSH reflex Free T4 0.76 0.32 - 4.0 uIU/mL [facility] 10/25/2024 11:1 1 AM EST 10/25/2024 11:11 AM EST Generic External Data Provider LAB BLOOD ORDERAB LES Final Result Performing Organization Address [facility] Co de Phone Number [facility] [address] [place] [phone] * CBC auto differential (10/25/2024 11:11 AM EST) White Blood Count 7.2 4.8 - 10.8 X10*3/uL [facility] Red Blood Count 5.09 4.20 - 5.50 X10*6/uL [facility] Hemoglobin 14.5 12.0 - 16.0 g/dl [facility] Hematocrit 43.1 37.0 - 47.0 % [facility] Mean Corpuscular Volume 84.7 80.0 - 98.0 fL [facility] Mean Corpuscular Hemoglobin 28.5 27.0 - 33.0 pg [facility] Mean Corpuscular HGB Conc 33.6 31.0 - 35.0 g/dl [facility] Red Cell Distribution Width 12.9 11.0 - 16.0 % [facility] Platelet Count 245 160 - 400 X10*3/uL [facility] Mean Platelet Volume 10.3 9.4 - 12.3 fL [facility] Neutrophils Percent Auto 58.2 45 - 73 % [facility] Imm Gran Pct Auto 0.1 0.0 - 0.4 % [facility] Lymphocytes Percent Auto 31.5 20 - 40 % [facility] Monocytes Percent Auto 7.4 2 - 11 % [facility] Eosinophils Percent Auto 2.2 0 - 4 % [facility] Basophils Percent Auto 0.6 0 - 2 % [facility] NRBC Pct Auto 0.0 0.0 - 0.2 /100WBC [facility] Neutrophils Absolute Auto 4.2 2.0 - 8.3 x10*3/uL [facility] Imm Gran Abs Auto 0.01 0.00 - 0.03 X10*3/uL [facility] Lymphocytes Absolute Auto 2.3 1.2 - 4.9 X10*3/uL [facility] Monocytes Absolute Auto 0.5 0.1 - 1.2 X10*3/uL [facility] Eosinophils Absolute Auto 0.2 0.0 - 0.4 X10*3/uL [facility] Basophils Absolute Auto 0.0 0.0 - 0.2 X10*3/uL [facility] NRBC Abs Auto 0.000 0.0 - 0.012 X10*3/uL [facility] 10/25/2024 11:1 1 AM EST 10/25/2024 11:11 AM EST us Generic External Data Provider LAB BLOOD ORDERAB LES Final Result [facility] [address] [place] [phone] * Iron And Total Iron Binding Capacity (10/25/2024 11:11 AM EST) Iron 62 30 - 160 mcg/dL [facility] Total Iron Binding Capacity 315 228 - 428 mcg/dL [facility] Percent Iron Saturation 20 15 - 50 % [facility] Unsaturated Iron Binding 253 ug/dL [facility] 10/25/2024 11:1 1 AM EST 10/25/2024 11:11 AM EST Generic External Data Provider LAB BLOOD ORDERAB LES Final Result Performing Organization Address [facility] de Phone Number [facility] [address] [place] [phone] * Insulin (10/25/2024 11:11 AM EST) Pathologist [facility] Insulin 12 2 - 29 uU/mL [facility] Comment:This test was perfor med using the Xetal chemiluminescentmethod. Values obtained from different assay methods cannot beused interchangeably. This insulin assay shows a possiblecross-reactivity with antibodies generated against insulin(immunoreactive insulin and some patients treated withbovine or porcine insulin). Insulin levels may be measuredlower in patients with insulin autoimmune syndrome orfamilial high pro-insulinemia. 10/25/2024 11:1 1 AM EST 10/25/2024 11:11 AM EST Generic External Data Provider LAB BLOOD ORDERAB LES Final Result Performing Organization Address [facility] Co de Phone Number [facility] [address] [place] [phone] * Zinc (10/25/2024 11:11 AM EST) Zinc 80 60 - 130 mcg/dL [facility] Comment:This test was develo ped and its analytical performancecharacteristics have been determined by [employer] [place], [place]. It hasnot been cleared or approved by the U.S. Food and DrugAdministration. This assay has been validated pursuantto the CLIA regulations and is used for clinicalpurposes.THIS TEST WAS PERFORMED AT:[employer] [id number] [place] [address]GQUUQTPISAAC KIMBALL MD,PHD 10/25/2024 11:1 1 AM EST 10/25/2024 11:11 AM EST Generic External Data Provider LAB BLOOD ORDERAB LES Final Result Performing Organization Address [facility]/ZIP Co de Phone Number [facility] [address] [place] [phone] * Vitamin A (10/25/2024 11:11 AM EST) Pathologist [facility] Vitamin A (Retinol) 51 38 - 98 mcg/dL [facility] Comment:Vitamin supplementat ion within 24 hours prior toblood draw may affect the accuracy of the results.This test was developed and its analytical performancecharacteristics have been determined by [employer] [place], [place]. It hasnot been cleared or approved by the U.S. Food and DrugAdministration. This assay has been validated pursuantto the CLIA regulations and is used for clinicalpurposes.THIS TEST WAS PERFORMED AT:[id number] [place] [address]YBQIYLOISAAC KIMBALL MD,PHD 10/25/2024 11:1 1 AM EST 10/25/2024 11:11 AM EST Generic External Data Provider LAB BLOOD ORDERAB LES Final Result Performing Organization Address [facility] Co de Phone Number [facility] [address] [place] [phone] * C-reactive Protein (10/25/2024 11:11 AM EST) Pathologist [facility] C Reactive Protein 0.29 < or = 0.50 mg/dL [facility] 10/25/2024 11:1 1 AM EST 10/25/2024 11:11 AM EST us Generic External Data Provider LAB BLOOD ORDERAB LES Final Result Performing Organization Address [facility] Co de Phone Number [facility] [address] [place] [phone] * Vitamin B1 (10/25/2024 11:11 AM EST) Vitamin B1 13 8 - 30 nmol/L [facility] Comment:Vitamin supplementat ion within 24 hours prior toblood draw may affect the accuracy of the results.This test was developed and its analytical performancecharacteristics have been determined by [employer] [place], [place]. It hasnot been cleared or approved by the U.S. Food and DrugAdministration. This assay has been validated pursuantto the CLIA regulations and is used for clinicalpurposes.THIS TEST WAS PERFORMED AT:[id number] [place] [address]TXBDSWRISAAC KIMBALL MD,PHD 10/25/2024 11:1 1 AM EST 10/25/2024 11:11 AM EST Generic External Data Provider LAB BLOOD ORDERAB LES Final Result Performing Organization Address [facility] Co de Phone Number [facility] [address] [place] [phone] * Hemoglobin A1c (10/25/2024 11:11 AM EST) Hemoglobin A1c 5.3 <6.0 % [facility] Comment:Hemoglobin A1C Refer ence Range Adults: 4.8 - 6.0 % Non diabetic: < 6.0 % Goal: < 7.0 %Additional Action Suggested: > 8.0 %Note: Hemoglobin A1c results are invalid for patients with abnormal amounts of HbF. Blood transfusions may impact the HbA1c concentration in the patient sample. Estimated Average Glucose 105 mg/dL [facility] Comment:eAG = Estimated ave rage glucose which is %A1C expressed asaverage glucose, using the formula of the N7B-QeodjggCbqfpib Glucose study (ADAG), Diabetes Care, Vol.31,#8,2007 10/25/2024 11:1 1 AM EST 10/25/2024 11:11 AM EST us Generic External Data Provider LAB BLOOD ORDERAB LES Final Result Performing Organization Address [facility] Co de Phone Number [facility] [address] [place] [phone] * Ferritin (10/25/2024 11:11 AM EST) Ferritin 43 10 - 122 ng/mL [facility] 10/25/2024 11:1 1 AM EST 10/25/2024 11:11 AM EST Generic External Data Provider LAB BLOOD ORDERAB LES Final Result Performing Organization Address [facility] de Phone Number [facility] [address] [place] [phone] * (ABNORMAL) Lipid Panel, Standard (10/25/2024 11:11 AM EST) Triglycerides 83 <150 mg/dL [facility] Comment:Desirable Triglyceri de: less than 150 mg/dLBorderline High Triglyceride 150-199 mg/dLHigh Triglyceride: 200-499 mg/dLVery High Triglyceride: greater than or equal to 5OO mg/dL Cholesterol 139 <200 mg/dL [facility] Comment:Desirable Cholestero l: less than 200 mg/dLBorderline High Cholesterol: 200-239 mg/dLHigh Cholesterol: greater than 239 mg/dL LDL Cholesterol Calculated 87 <100 mg/dL [facility] Comment:Desirable LDL: less than 100 mg/dLNear Optimal/Above Optimal LDL: 110- 129 mg/dLBorderline High LDL: 130-159 mg/dLHigh LDL: 160-189 mg/dLVery High LDL: greater than or equal to 190 mg/dL HDL Cholesterol 36(L) >40 mg/dL [facility] Comment:Desirable HDL: great er than 40 mg/dL Note: This HDL assay may give artificially low results in patients with liver disease. 10/25/2024 11:1 1 AM EST 10/25/2024 11:11 AM EST us Generic External Data Provider LAB BLOOD ORDERAB LES Final Result [facility] [address] [place] [phone] * (ABNORMAL) Comprehensive Metabolic Panel (10/25/2024 11:11 AM EST) Sodium 141 135 - 145 mmol/L [facility] Potassium 4.1 3.3 - 5.1 mmol/L [facility] Chloride 112(H) 96 - 108 mmol/L [facility] Carbon Dioxide 25 22 - 29 mmol/L [facility] Anion Gap 8(L) 12 - 20 [facility] Urea Nitrogen (BUN) 14 9 - 16 mg/dL [facility] Creatinine, Serum 0.65 0.5 - 1.4 mg/dL [facility] Estimated Glomerular Filt Rate >60 [facility] Comment:Chronic Kidney Disea se: Estimated GFR < 60 mL/min/1.24b6Lqvmox Kidney Disease: Estimated GFR < 15 mL/min/1.73m2 Glucose 92 60 - 115 mg/dL [facility] Calcium 8.8 8.4 - 10.2 mg/dL [facility] Bilirubin, Total 0.4 0.0 - 1.0 mg/dL [facility] Aspartate Amino Transferase 24 5 - 31 U/L [facility] Alanine Aminotransferase 36(H) 0 - 31 U/L [facility] Total Protein 7.0 6.5 - 8.0 g/dL [facility] Albumin Level 4.2 3.5 - 5.0 g/dL [facility] Alkaline Phosphatase 70 39 - 117 U/L [facility] 10/25/2024 11:1 1 AM EST 10/25/2024 11:11 AM EST us Generic External Data Provider LAB BLOOD ORDERAB LES Final Result [facility] [address] [place] [phone] * Hematoxylin and Eosin Stain (10/11/2024 10:17 AM EST) 10/11/2024 10:1 7 AM EST 10/11/2024 11:43 AM EST Narrative [facility] - 10/13/2024 12:09 PM EST ----- ------- Name: Renata Torres ? Age/Sex: 24/F ? : 2000 Unit#: [id number] ?? Attend Dr: Modesto Yoo MD ?Re10/11/24 ?Status: DEP SDC ? Location: HO.SSS ?Disch: ? ----- ------- SPEC : [id number] ? RECD: 10/11/24 ? STATUS: ??SOUT ? REQ NUM: [id number] ? DEANA: 10/11/24-1017 ? SUBM DR: Modesto Yoo MD ? ENTERED: ??10/11/24-1152 ?SP TYPE: Surgical ? OTHR DR: Mary Doty MD ORDERED: ??HE Stain/12, Gross Micro L4/5, IHC/2, Special st. 2/4, H. pylori/2, AB/PAS/4 ? Diagnosis ?? A. ??Duodenum, biopsy: ??Chronic inactive duodenitis. ? B. ??Stomach, antrum, biopsy: ??Antral-type and oxyntic mucosa with mild chronic inactive ?? inflammation; no Helicobacter organisms seen. ? C. ??Stomach, fundus, biopsy: ??Oxyntic mucosa with mild chronic inactive inflammation; no ?? Helicobacter organisms seen. ? D. ??EG junction, biopsy: ?- Cardiofundic-type mucosa with mild chronic inactive inflammation; no intestinal ?? metaplasia seen. ?- Squamous epithelium within normal limits. ? D. ??Esophagus, biopsy: ??Squamous epithelium within normal limits; no inflammation seen. ?Clinical History Pre-Op Dx: ??Obesity Post-Op Dx: Gastritis and duodenitis ?Microscopic Description A-D. ??Microscopic sections examined. ??Foveolar metaplasia is present in A and no metaplastic changes are seen in B, C or D supported by AB/PAS stains; no Helicobacter organisms are seen, supported by H. pylori immunostain (B and C). ? Material Received ?? A. Duodenum bx ?? B. Antrum bx ?? C. Fundus bx ?? D. EG junction bx ?? E. Esophagus bx ? Gross Description Received in 5 parts. A. ??Received in formalin labeled ?duodenum Bx? is a fragment of jones- white soft tissue measuring 0.3 cm in greatest dimension which is wrapped in lens paper and entirely submitted for microscopic examination, 1 piece in cassette A. ? CONTINUED ON NEXT PAGE ----- ------- Name: Renata Torres ? Age/Sex: 24/F ? : 2000 Unit#: [id number] ?? Attend Dr: Modesto Yoo MD ?Re10/11/24 ?Status: DEP SDC ? Location: HO.SSS ?Disch: ? ----- ------- SPEC : [id number] ? RECD: 10/11/24-1143 ? STATUS: ??SOUT ? REQ NUM: [id number] ? DEANA: 10/11/24-1017 ? SUBM DR: Modesto Yoo MD ? ENTERED: ??10/11/24-1153 ?SP TYPE: Surgical ? OTHR DR: Mary Doty MD ORDERED: ??HE Stain/12, Gross Micro L4/5, IHC/2, Special st. 2/4, H. pylori/2, AB/PAS/4 ? Gross Description ?(Continued) B. Received in formalin labeled ?antrum Bx? is a fragment of pink-jones soft tissue measuring 0.3 cm in greatest dimension which is wrapped in lens paper and entirely submitted for microscopic examination, 1 piece in cassette B. C. Received in formalin labeled ?fundus Bx? is a fragment of pink-jones soft tissue measuring 0.4 cm in greatest dimension which is wrapped in lens paper and entirely submitted for microscopic examination, 1 piece in cassette C. D. Received in formalin labeled ?EG junction Bx? are 2 fragments of jones-white soft tissue measuring 0.3 and 0.4 cm in greatest dimension which are wrapped in lens paper and entirely submitted for microscopic examination, 2 pieces in cassette D. Received in formalin labeled ?esophagus Bx? are 2 fragments of translucent, white soft tissue measuring 0.3 and 0.4 cm in greatest dimension which are wrapped in lens paper and entirely submitted for microscopic examination, 2 pieces in cassette E. ??[facility] Special studies ordered and performed: Immunostain for H. pylori on B and C; AB/PAS stains on A, B, C and D Copies To: ?? Mary Doty MD ?? [address] ?? [place] [address] ?? [phone] ?? Modesto Yoo MD ?? [facility] ?? [address] ?? [place] ?? [phone] ----- ------- Signed (signature on file) Allan Cole MD 10/13/24 1209 ? ----- ------- ? END OF REPORT ? Generic External Data Provider LAB BLOOD ORDERAB LES Final Result Performing Organization Address [facility] Co de Phone Number [facility] [address] [place] [phone] * HCG, Qualitative, Urine (10/11/2024 9:32 AM EST) Pathologist [facility] Urine NEGATIVE NEGATIVE [facility] Comment:This test was develo ped to detect early . Falsenegative results may occur after the 5th - 7th week ofpregnancy when using this test method. If clinicallyindicated, consider a serum hCG. 10/11/2024 9:32 AM EST 10/11/2024 9:47 AM EST us Generic External Data Provider LAB URINE ORDERAB LES Final Result Performing Organization Address [facility]/ZIP Co de Phone Number [facility] [address] [place] [address] [phone] * Hepatitis C Antibody with Reflex to HCV, RNA, Quantitative, Real-Time PCR (03/24/2024 2:34 PM EDT) Hepatitis C Antibody Nonreactive Nonreactive [facility] Comment:Antibodies to HCV no t detected; does not exclude early acuteHCV infection. Blood Venous blood specimen / Unknown 03/24/2024 2:34 PM EDT 03/24/2024 4:07 PM EDT us Mary Culver MD LAB BLOOD ORDERAB LES Final Result Performing Organization Address [facility] Co de Phone Number [facility] [address] [place] [phone] * HIV-1/2 Antigen and Antibodies, Fourth Generation, with Reflexes (03/24/2024 2:34 PM EDT) Pathologist [facility] HIV AB/AG Nonreactive Nonreactive [facility] Comment:HIV-1 p24 Ag and/or HIV-1/HIV-2 Ab not detected.A test result that is nonreactive does not exclude thepossibility of exposure to or infection with HIV-1 and/orHIV-2. Nonreactive results in this assay for individualswith prior exposure to HIV-1 and/or HIV-2 may be due toantigen and antibody levels that are below the limit ofdetection of this assay.The [employer] HIV Ag/Ab Combo assay result andsupplemental assay results should be interpreted inconjunction with the patient's clinical presentation,history and other laboratory results. If the results areinconsistent with clinical evidence, additional testing issuggested to confirm the result. Blood Venous blood specimen / Unknown 03/24/2024 2:34 PM EDT 03/24/2024 4:07 PM EDT us Mary Culver MD LAB BLOOD ORDERAB LES Final Result Performing Organization Address [facility] Co de Phone Number [facility] [address] [place] [address] [phone] from Last 3 Months or Most Recently Relevant to Health Maintenance Insurance [facility] C3 Care Teams Mate First Relationship Specialty Start Date End Date Mary Doty MD [address] [place] [phone] PCP - General Internal Medicine 02/23/24
--- OUTSIDE RECORDS SUMMARY | 2024-12-04 14:56 | XMS_ITS | Encounter Summary ---
Author Organization [employer] Address [address] [place] [address] Care Team Providers Care Quality Control Systems Manager Name Role Phone Mary Doty MD Primary Care Pro vider Reason for Visit * Reason Comments Care Management [facility] TC #3-lvm Encounter Details Date Type Department Care Team (Late st Contact Info) Description 11/22/2024 Telephone [facility] MEDICINE [address] [place] [address] Alicia Solis, [place] Care Management ([facility] TC #3-lvm) Social History Tobacco Use Types Packs/Day Years Used Date Smoking Tobacco: Every Day Cigarettes Comments:Started smoking at 13 y of age [...] Orientation Bisexual 02/23/2024 9: 49 AM EDT documented as of this encounter Progress Notes * Alicia Solis - 11/22/2024 1:10 PM EST CM Alicia Solis RN placed outbound call to patient for follow up call. No answer at this time.LVM introducing herself from [facility] CM Department. Requested call back. CM notified patient that this is the third follow up phone call that has been placed to the patient. If no return call is received then the case will be closed due to lost contact. CM reinforced direct contact information or CHW for any additional questions or concerns. Education provided on Walk[facility]In Urgent Care located in [facility] of [facility]. Patient provided with after-hours line for [facility], , which offer night time triage service and option to transfer to business objects consultant provider if needed. Will await return call. documented in this encounter Plan of Treatment Not on file documented as of this encounter Visit Diagnoses Not on filedocumented in this encounter Additional Health Concerns Assessment Noted Time PHQ-9 Depression Total Score: 16 024 9:19 AM EDT documented as of this encounter Care Teams Quality Control Systems Manager Relationship Specialty Start Date End Date Mary Doty MD [address] [place] [address] [place] [phone] PCP - General Internal Medicine 02/23/24 documented as of this encounter
--- OUTSIDE RECORDS SUMMARY | 2024-12-04 14:56 | XMS_ITS | Encounter Summary ---
Author Organization [employer] Address [address] [facility] [address] [place] [address] Care Team Providers Care Grizzlyman Name Role Phone Mary Doty MD Primary Care Pro vider Reason for Visit * Reason Comments Med Refill Encounter Details Date Type Department Care Team (Late st Contact Info) Description 12/07/2022 Refill [facility] MEDICINE [address] [place] [address] [phone] Name, MD Dariel [address] [place] [phone] Social History Tobacco Use Types Packs/Day Years Used Date Smoking Tobacco: Never Assessed Comments Unknown Sex and Gender Information Value Date Recorded Sex Assigned at Female 09/07/2022 10:22 AM EDT Legal Sex Female 10:22 AM EDT Gender Identity Female 09/07/2022 10:22 AM EDT Sexual Orientation Bisexual 02/23/2024 9: 49 AM EDT documented as of this encounter Plan of Treatment Not on file documented as of this encounter Visit Diagnoses Not on filedocumented in this encounter Care Teams Grizzlyman Relationship Specialty Start Date End Date Mary Doty MD [address] [place], [place] [phone] PCP - General Internal Medicine 02/23/24 documented as of this encounter
== END 2024-12-04 11:47 | disposition home or self-care (01) ==
LOC: HO.HBST 10:19
PROVIDERS: PCP Student in an Organized Health Care Education/Training Program; Visit Provider Counselor Mental Health
DX: F33.1 Major depressive disorder, recurrent, moderate (principal); F41.9 Anxiety disorder, unspecified
CPT/HCPCS: 90837

== ENCOUNTER → 2024-12-04 10:19 | Outpatient (BNVA) | payer OTHER, MEDICAID, SELFPAY | PROVIDERS: PCP Student in an Organized Health Care Education/Training Program; Visit Provider Counselor Mental Health ==

== ENCOUNTER 2024-12-27 09:21 | Outpatient (REF) | payer MEDICAID, SELFPAY ==
--- NOTE | ~2024-12-27 | FL_ITS ---
EXAMINATION: XR FLUOROSCOPY UPPER GI WITH AIR CLINICAL INFORMATION: Preoperative evaluation prior to bariatric surgery COMPARISON: None TECHNIQUE: Fluoroscopic air contrast upper GI examination was performed utilizing standard techniques with thin and thick barium and effervescent granules. Numerous spot images were obtained. FINDINGS: Dual and single contrast images of the esophagus demonstrate normal caliber, contour, and mucosal pattern. No evidence of stricture, mass, or ulcerations identified. Esophageal peristalsis was normal. No evidence of hiatus hernia identified. No significant gastroesophageal reflux was seen during the course of the examination and on reflux views. Surgical clips are present in the upper quadrant. Dual contrast and single contrast images of the stomach demonstrated a normal contour. The areae gastricae have a prominent appearance, suggestive of mild gastritis. No masses or ulcerations are seen. Contrast freely passed into the gastric antrum and duodenal bulb without delay. Single and air-contrast images of the duodenal bulb demonstrate no abnormality. The duodenal sweep has a normal appearance, course, and mucosal fold appearance. The imaged proximal jejunum has a normal fold pattern and caliber. FLUOROSCOPY TIME: 3 minutes 54 seconds Number of Spot Images: 10 Number of Cine: 13 DOSE AREA PRODUCT: 3204 uGy-m2 (microgray-meter squared) FL/FL upper GI w air IMPRESSION: 1. Prominent appearance of the areae gastricae, suggestive of possible mild gastritis. Otherwise, unremarkable upper GI series. 2. Status post cholecystectomy. This procedure was performed by Fernando Bergman PA-C, and supervised by Dr. Cat Electronically signed by: Sage Cat MD 12/29/2024 09:35 AM [facility] [place]
--- OUTSIDE RECORDS SUMMARY | 2024-12-27 09:35 | XMS_ITS | Encounter Summary ---
Author Organization [employer] Address [address] [place] [address] Care Team Providers Care Job Boss Name Role Phone Mary Doty MD Primary Care Pro vider Encounter Details Date Type Department Care Team (Late st Contact Info) Description 10/25/2024 Orders Only [facility] External Provider, [employer] Social History Tobacco Use Types Packs/Day Years [...] is your housing situation today? I have ginnydavey helms 12/17/[address] you [...] t he electric, gas, oil or water [employer] threatened to shut off services in your [...] on file documented as of this encounter Procedures Procedure Name Priority Date/Time Associated Diagnosis Comments US ABDOMEN COMPLETE WITH ELASTOGRAPHY Routine 10/25/2024 10:24 AM EST documented in this encounter Results * US Abdomen Comp w elastography (10/25/2024 10:24 AM EST) Anatomical Region Laterality Modality Abdomen Ultrasound 10/25/2024 10:2 4 AM EST Narrative 12/05/2024 9:11 AM EST ? [employer] ?[address] ?[place] [address] ? Ultrasound Report ? Signed ? Patient: Torres,Renata ?MR#: [id number] ? : 2000 ?Acct:[id number] ? Age/Sex: 24 / F ?ADM Date: 10/25/24 ? Loc: HO.US ? Attending Dr: Modesto Yoo MD ? Ordering Physician: Modesto Yoo MD ?? Date of Service: 10/25/24 ?? Procedure(s): US abdomen comp w elastography ?? Accession Number(s): [id number] ? cc: Mary Doty MD; Modesto Yoo MD ? EXAMINATION: ??US ABDOMEN COMPLETE WITH LIVER ELASTOGRAPHY ? HISTORY: E66.9 - Obesity, unspecified ? TECHNIQUE: Real-time grayscale ultrasound imaging of the abdomen was ?? performed and images were reviewed. ? COMPARISON: There are no prior studies for comparison. ? FINDINGS: ?? Liver: ??The liver is normal in size, but demonstrates increased ?? echotexture, consistent with steatosis. ??No focal mass or intrahepatic ?? biliary ductal dilatation is identified. ??There is normal hepatopedal ?? flow in the portal vein. ? Ultrasound elastography of the liver was performed with 10 separate ?? measurements of the liver parenchyma with the patient in the supine ?? position. ??Measurements were obtained approximately 2 cm below ?? Danielle's capsule and perpendicular to the capsule. ??Images are of ?? satisfactory quality. ? The median shear wave velocity is 1.69 m/s. ?? The interquartile range/median (IQR/median) is 0.15. ? Gallbladder and biliary tree: The gallbladder is surgically absent. ? The common bile duct is normal in caliber measuring 3 mm. ? Kidneys: ??The right kidney measures 10.3 cm in length. The left kidney ?? measures 10.1 cm in length. ??The kidneys are unremarkable, without ?? evidence of masses, hydronephrosis, or calculi. ? Pancreas: The pancreatic head, neck, and body are unremarkable. The ?? pancreatic tail is obscured by bowel gas. ? Spleen: The spleen is normal in size and contour, measuring 7.0 cm in ?? length. ? Abdominal aorta and inferior vena cava: The visualized portions of the ?? abdominal aorta and inferior vena cava are normal in caliber. ? There is no free fluid in the abdomen. ? US/US abdomen comp w elastography ?? IMPRESSION: ? Hepatic steatosis. ? The median shear wave velocity is 1.69 m/s, corresponding to a median ?? liver stiffness of 8.92 kPa. ??The IQR/median value is 0.15. ??This is ?? indicative of a quality data set. ?? Findings are indicative of a low elastography value which rules out ?? advanced chronic liver disease in asymptomatic patients. ? REFERENCE: ?? Society of Radiologists in Ultrasound Liver Stiffness Thresholds (2019): ? LIVER STIFFNESS THRESHOLDS: ?? *Shear wave velocity less than 1.3 m/s (Liver Stiffness equal or less ?? than 5 kPa): ??High probability of being normal. ?? *Shear wave velocity less than 1.7 m/s (Liver Stiffness less than 9 ?? kPa): ??In the absence of other known clinical signs, rules out ?? compensated advanced chronic liver disease. ?? *Shear wave velocity between 1.7-2.1 m/s (Liver Stiffness 9-13 kPa): ? Suggestive of compensated advanced chronic liver disease but need ?? further test for confirmation. ?? *Shear wave velocity between 2.1-2.4 m/s (Liver Stiffness 13-17 kPa): ? Rules in compensated advanced chronic liver disease. ?? *Shear wave velocity ??greater than 2.4 m/s (Liver Stiffness over 17 ?? kPa): ??Suggestive of clinically significant portal hypertension. ? QUALITY OF DATA SET: ?? *IQR/Median value equal or less than 0.15 implies a quality data set. ?? *IQR/Median value over 0.15 implies a poor quality data set. ? SIGNIFICANT CHANGE FROM PRIOR EXAM: ?? Significant change if liver stiffness measurement is 10% or greater ?? from prior exam. ? OTHER CONSIDERATIONS: ?? The stage of liver fibrosis may be overestimated in the setting of ?? acute hepatitis, liver inflammation, elevated liver function tests, ?? hepatic vascular congestion, obstructive cholestasis, non-fasting ?? state, and infiltrative diseases such as amyloidosis and lymphoma. ??In ?? some patients with NAFLD, the liver stiffness thresholds for ?? compensated advanced chronic liver disease may be lower. ??In causes ?? other than viral hepatitis and NAFLD, liver stiffness thresholds are ?? not well established. ? Electronically signed by: ??Raj Stafford MD ??12/05/2024 09:08 AM EST ?? RP ? Dictated By: ?Raj Stafford MD ? Signed By: ?<Electronically signed by Raj Stafford MD in OV> ?12/05/24 0908 ? DD/ 1024 ? TD/TT: 10/25/24 1035 ? Pocket Builder: ? Procedure Note Rina, Hugo - 12/05/[address] [address] Ultrasound Report Signed Patient: Renata TorresMR#: [id number] : 2000Acct:[id number] Age/Sex: 24 / FADM Date: 10/25/24 Loc: HO.US Attending Dr: Modesto Yoo MD Ordering Physician: Modesto Yoo MD Date of Service: 10/25/24 Procedure(s): US abdomen comp w elastography Accession Number(s): [id number] cc: Mary Doty MD; Modesto Yoo MD EXAMINATION: US ABDOMEN COMPLETE WITH LIVER ELASTOGRAPHY HISTORY: E66.9 - Obesity, unspecified TECHNIQUE: Real-time grayscale ultrasound imaging of the abdomen was performed and images were reviewed. COMPARISON: There are no prior studies for comparison. FINDINGS: Liver: The liver is normal in size, but demonstrates increased echotexture, consistent with steatosis. No focal mass or intrahepatic biliary ductal dilatation is identified. There is normal hepatopedal flow in the portal vein. Ultrasound elastography of the liver was performed with 10 separate measurements of the liver parenchyma with the patient in the supine position. Measurements were obtained approximately 2 cm below Danielle's capsule and perpendicular to the capsule. Images are of satisfactory quality. The median shear wave velocity is 1.69 m/s. The interquartile range/median (IQR/median) is 0.15. Gallbladder and biliary tree: The gallbladder is surgically absent. The common bile duct is normal in caliber measuring 3 mm. Kidneys: The right kidney measures 10.3 cm in length. The left kidney measures 10.1 cm in length. The kidneys are unremarkable, without evidence of masses, hydronephrosis, or calculi. Pancreas: The pancreatic head, neck, and body are unremarkable. The pancreatic tail is obscured by bowel gas. Spleen: The spleen is normal in size and contour, measuring 7.0 cm in length. Abdominal aorta and inferior vena cava: The visualized portions of the abdominal aorta and inferior vena cava are normal in caliber. There is no free fluid in the abdomen. US/US abdomen comp w elastography IMPRESSION: Hepatic steatosis. The median shear wave velocity is 1.69 m/s, corresponding to a median liver stiffness of 8.92 kPa. The IQR/median value is 0.15. This is indicative of a quality data set. Findings are indicative of a low elastography value which rules out advanced chronic liver disease in asymptomatic patients. REFERENCE: Society of Radiologists in Ultrasound Liver Stiffness Thresholds (2020): LIVER STIFFNESS THRESHOLDS: *Shear wave velocity less than 1.3 m/s (Liver Stiffness equal or less than 5 kPa): High probability of being normal. *Shear wave velocity less than 1.7 m/s (Liver Stiffness less than 9 kPa): In the absence of other known clinical signs, rules out compensated advanced chronic liver disease. *Shear wave velocity between 1.7-2.1 m/s (Liver Stiffness 9-13 kPa): Suggestive of compensated advanced chronic liver disease but need further test for confirmation. *Shear wave velocity between 2.1-2.4 m/s (Liver Stiffness 13-17 kPa): Rules in compensated advanced chronic liver disease. *Shear wave velocity greater than 2.4 m/s (Liver Stiffness over 17 kPa): Suggestive of clinically significant portal hypertension. QUALITY OF DATA SET: *IQR/Median value equal or less than 0.15 implies a quality data set. *IQR/Median value over 0.15 implies a poor quality data set. SIGNIFICANT CHANGE FROM PRIOR EXAM: Significant change if liver stiffness measurement is 10% or greater from prior exam. OTHER CONSIDERATIONS: The stage of liver fibrosis may be overestimated in the setting of acute hepatitis, liver inflammation, elevated liver function tests, hepatic vascular congestion, obstructive cholestasis, non-fasting state, and infiltrative diseases such as amyloidosis and lymphoma. In some patients with NAFLD, the liver stiffness thresholds for compensated advanced chronic liver disease may be lower. In causes other than viral hepatitis and NAFLD, liver stiffness thresholds are not well established. Electronically signed by: Raj Stafford MD 12/05/2024 09:08 AM [facility] Dictated By: Raj Stafford MD Signed By: <Electronically signed by Raj Stafford MD in OV> 12/05/24 0908 DD/ 1024 TD/TT: 10/25/24 1035 Pocket Builder: [facility] External Provider IMG US PROCEDURES Final Result documented in this encounter Visit Diagnoses Not on filedocumented in this encounter Additional Health Concerns Assessment Noted Time PHQ-9 Depression Total Score: 16 04/ 024 9:19 AM EDT documented as of this encounter Care Teams Job Boss Relationship Specialty Start Date End Date Mary Doty MD [address] [place] [phone] PCP - General Internal Medicine 02/23/24 documented as of this encounter
--- OUTSIDE RECORDS SUMMARY | 2024-12-27 09:35 | XMS_ITS | Clinical Summary ---
Author Organization [employer] [facility] ity Address [address] [place] [address] Care Team Providers Care Paving Rammer Name Role Phone Unavailable Primary Care Provider Unavailabl e Social History Tobacco Use Types Packs/Day Years Used Date Smoking Tobacco: Never Assessed Comments Unknown Sex and Gender Information Value Date Recorded Sex Assigned at Not on file Legal Sex Female 1:35 PM EST Gender Identity Not on file Sexual Orientation [...] patient's age to complete this topic Meningococcal B Vacine Aged Out No lo nger eligible based on patient's age to complete [...]
--- OUTSIDE RECORDS SUMMARY | 2024-12-27 09:35 | XMS_ITS | Clinical Summary ---
Author Organization [employer] Address [address] [facility] 7t [place] [address] Care Team Providers Care Client Coordinator Name Role Phone Mary Doty MD Primary [...] 03/29/2024 06/30/2024 Strep throat 03/29/2024 06/30/2024 Encounters Date Type Department Care Team Description 12/20/[address] [address] Mary Doty MD Care Management ([facility] Graduation) 11/22/[address] [address] Alicia Solis, [place] Care Management ([facility] TC #3-lvm) 10/27/2024 Orders Only [facility] External Provider, [facility] 10/26/[address] [address] Alicia Solis, [place] Care Management ([facility] TC #2-lvm) 10/25/2024 Orders Only [facility] External Provider, [facility] 10/13/[address] [address] Caron Alvarez, [place] Med Refill ([facility] notification) 09/27/[address] [address] Alicia Solis, RN Care Management ([facility] TC #1-lvm) from Last 3 Months Immunizations Name Administration [...] Health Maintenance Due Date Last Done Comments Alcohol/Substance Use Screening 2010 Family Planning (PISQ) 2013 Pneumococcal Vaccine: Pediatrics (0 to 5 Years) and At-Risk Patients (6 to 49) Years) (1 of 2 - PCV) 2017 Pap Smear 2019 Depression Monitoring (PHQ-9) 08/24/2024 [...] 03/12/2011 Hepatitis A Vaccines Completed 06/13/2013, 05/13/20 HIV Screening Completed 03/24/2024, 05/09, 01/03/2020 Hepatitis [...] AUTO DIFFERENTIAL Routine 10/25/2024 11:11 AM EST US ABDOMEN COMPLETE WITH ELASTOGRAPHY Routine 10/25/2024 10:24 AM EST HEMATOXYLIN AND EOSIN STAIN Routine [...] EST Narrative 10/28/2024 11:30 AM EST ? [facility] ?[address] ?[place] [address] ?XRay Report ? Signed ? Patient: Torres,Renata ?MR#: [id number] ? : 2000 ?Acct:[id number] ? Age/Sex: 24 / F ?ADM Date: 10/27/24 ? Loc: HO.CARD ? Attending Dr: Modesto Yoo MD ? Ordering Physician: Modesto Yoo MD ?? Date of Service: 10/27/24 ?? Procedure(s): XR chest 2V ?? Accession Number(s): [id number] ? cc: Mary Doty MD; Modesto Yoo [...] DD/ 1410 ? TD/TT: 10/27/24 1421 ? Emergency Room Rn: DM ? Procedure Note Rina, Image - 10/28/[address] [address] XRay Report Signed Patient: Arnulfo Torres#: [id number] : 2000Acct:[id number] Age/Sex: 24 / FADM Date: 10/27/24 Loc: ANASTASIA Attending Dr: Modesto Yoo MD Ordering Physician: Modesto Yoo MD Date of Service: 10/27/24 Procedure(s): XR chest 2V Accession Number(s): [id number] cc: Mary Doty MD; Modesto Yoo MD [...] 10/28/24 1127 DD/ 1410 TD/TT: 10/27/24 1421 Emergency Room Rn: HERIBERTO [facility] External Provider IMG XR PROCEDURES Edited Result - Final * (ABNORMAL) Vitamin D, 25-Hydroxy, Total, Immunoassay (10/25/2024 11:11 AM EST) Vitamin D 25-OH Total 21.4(L) >30 ng/mL [facility] Comment:Health Based Referen ce Values*< 20 ng/mL Bexmfavlv19-20 ng/mL Insufficient> 30 ng/mL Sufficient*Shelly COLE. N [...] Provider LAB BLOOD ORDERAB LES Final Result [facility] [address] [place] [phone] * Vitamin B12 (Cobalamin) and Folate Panel, Serum (10/25/2024 11:11 AM EST) Vitamin B12 455 200 - 900 pg/mL [facility] Comment:NORMAL 200-900 PG/ML INDETERMINATE 160-199 PG/ML DEFICIENT < 160 PG/ML Folate 12.6 > or = 4.0 ng/mL [facility] Comment:Reference Values:> o r = 4.0 ng/mL< 4.0 ng/mL suggests folate deficiency Methotrexate, aminopterin and folinic acid(leucovorin) are chemotherapeutic agents whose molecularstructures are similar to folate; therefore, the Architectfolate assay cannot be used for patients using these drugs. 10/25/2024 11:1 1 AM EST 10/25/2024 11:11 AM EST Generic External Data Provider LAB BLOOD ORDERAB LES Final Result Performing Organization Address [facility]/ZIP Co de Phone Number [facility] [address] [place] [phone] * TSH with Reflex to Free T4 (10/25/2024 11:11 AM EST) Pathologist [facility] TSH reflex Free T4 0.76 0.32 - 4.0 uIU/mL [facility] 10/25/2024 11:1 1 AM EST 10/25/2024 11:11 AM EST Generic External Data Provider LAB BLOOD ORDERAB LES Final Result Performing Organization Address City/[facility]/ZIP Co de Phone Number [facility] [address] [place] [phone] * CBC auto differential (10/25/2024 11:11 AM EST) Pathologist [facility] White Blood Count 7.2 4.8 - 10.8 X10*3/uL [facility] Red Blood Count 5.09 4.20 - 5.50 X10*6/uL [facility] Hemoglobin 14.5 12.0 - 16.0 g/dl [facility] Hematocrit 43.1 37.0 - 47.0 % [facility] Mean Corpuscular Volume 84.7 80.0 - 98.0 fL [facility] Mean Corpuscular Hemoglobin 28.5 27.0 - 33.0 pg [facility] Mean Corpuscular HGB Conc 33.6 31.0 - 35.0 g/dl [facility] Red Cell Distribution Width 12.9 11.0 - 16.0 % [facility] Platelet Count 245 160 - 400 X10*3/uL [facility] Mean Platelet Volume 10.3 9.4 - 12.3 fL [facility] Neutrophils Percent Auto 58.2 45 - 73 % [facility] Imm Gran Pct Auto 0.1 0.0 - 0.4 % [facility] Lymphocytes Percent Auto 31.5 20 - 40 % [facility] Monocytes Percent Auto 7.4 2 - 11 % [facility] Eosinophils Percent Auto 2.2 0 - 4 % [facility] Basophils Percent Auto 0.6 0 - 2 % [facility] NRBC Pct Auto 0.0 0.0 - 0.2 /100WBC [facility] Neutrophils Absolute Auto 4.2 2.0 - 8.3 x10*3/uL [facility] Imm Gran Abs Auto 0.01 0.00 - 0.03 X10*3/uL [facility] Lymphocytes Absolute Auto 2.3 1.2 - 4.9 X10*3/uL [facility] Monocytes Absolute Auto 0.5 0.1 - 1.2 X10*3/uL [facility] Eosinophils Absolute Auto 0.2 0.0 - 0.4 X10*3/uL [facility] Basophils Absolute Auto 0.0 0.0 - 0.2 X10*3/uL [facility] NRBC Abs Auto 0.000 0.0 - 0.012 X10*3/uL [facility] 10/25/2024 11:1 1 AM EST 10/25/2024 11:11 AM EST us Generic External Data Provider LAB BLOOD ORDERAB LES Final Result Performing Organization Address [facility] Phone Number [facility] [address] [place] [phone] * Iron And Total Iron Binding Capacity (10/25/2024 11:11 AM EST) Iron 62 30 - 160 mcg/dL [facility] Total Iron Binding Capacity 315 228 - 428 mcg/dL [facility] Percent Iron Saturation 20 15 - 50 % [facility] Unsaturated Iron Binding 253 ug/dL [facility] 10/25/2024 11:1 1 AM EST 10/25/2024 11:11 AM EST Generic External Data Provider LAB BLOOD ORDERAB LES Final Result Performing Organization Address [facility] Number [facility] [address] [place] [phone] * Insulin (10/25/2024 11:11 AM EST) Pathologist [facility] Insulin 12 2 - 29 uU/mL [facility] Comment:This test was perfor med using the Zhao chemiluminescentmethod. Values obtained from different assay methods [...] ORDERAB LES Final Result Performing Organization Address [facility] de Phone Number [facility] [address] [place] [phone] * Zinc (10/25/2024 11:11 AM EST) Zinc 80 60 - 130 mcg/dL [facility] Comment:This test was develo ped and its analytical performancecharacteristics have been determined by [employer] [place], [place]. It hasnot been cleared or approved by the .S. Food and DrugAdministration. This assay has been validated pursuantto the CLIA regulations and is used for clinicalpurposes.THIS TEST WAS PERFORMED AT:[employer] [id number] [place] [address]XMDPDQBISAAC KIMBALL MD,PHD 10/25/2024 11:1 1 AM EST 10/25/2024 11:11 AM EST us Generic External Data Provider LAB BLOOD ORDERAB LES Final Result Performing Organization Address [facility] Co de Phone Number [facility] [address] [place] [phone] * Vitamin A (10/25/2024 11:11 AM EST) Vitamin A (Retinol) 51 38 - 98 mcg/dL [facility] Comment:Vitamin supplementat ion within 24 hours prior toblood draw may affect the accuracy of the results.This test was developed and its analytical performancecharacteristics have been determined by [employer] [place], [place]. It hasnot been cleared or approved by the U.S. Food and DrugAdministration. This assay has been validated pursuantto the CLIA regulations and is used for clinicalpurposes.THIS TEST WAS PERFORMED AT:[employer]/[id number] [place] [address]WTAXEYHISAAC KIMBALL MD,PHD 10/25/2024 11:1 1 AM EST 10/25/2024 11:11 AM EST us Generic External Data Provider LAB BLOOD ORDERAB LES Final Result Performing Organization Address [facility]/ZIP Co de Phone Number [facility] [address] [place] [phone] * C-reactive Protein (10/25/2024 11:11 AM EST) Pathologist [facility] C Reactive Protein 0.29 < or = 0.50 mg/dL [facility] 10/25/2024 11:1 1 AM EST 10/25/2024 11:11 AM EST Generic External Data Provider LAB BLOOD ORDERAB LES Final Result Performing Organization Address [facility]/ZIP Co de Phone Number [facility] [address] [place] [phone] * Vitamin B1 (10/25/2024 11:11 AM EST) [facility] Vitamin B1 13 8 - 30 nmol/L [facility] Comment:Vitamin supplementat ion within 24 hours prior toblood draw may affect the accuracy of the results.This test was developed and its analytical performancecharacteristics have been determined by [employer] [place], [place]. It hasnot been cleared or approved by the U.S. Food and DrugAdministration. This assay has been validated pursuantto the CLIA regulations and is used for clinicalpurposes.THIS TEST WAS PERFORMED AT:[id number] [place] [address]WQPFOYKISAAC KIMBALL MD,PHD 10/25/2024 11:1 1 AM EST 10/25/2024 11:11 AM EST Generic External Data Provider LAB BLOOD ORDERAB LES Final Result Performing Organization Address [facility]/ZIP Co de Phone Number [facility] [address] [place] [phone] * Hemoglobin A1c (10/25/2024 11:11 AM EST) Pathologist [facility] Hemoglobin A1c 5.3 <6.0 % [facility] Comment:Hemoglobin A1C Refer ence Range Adults: 4.8 - 6.0 % Non diabetic: < 6.0 % Goal: < 7.0 %Additional Action Suggested: > 8.0 %Note: Hemoglobin A1c results are invalid for patients with abnormal amounts of HbF. Blood transfusions may impact the HbA1c concentration in the patient sample. Estimated Average Glucose 105 mg/dL [facility] Comment:eAG = Estimated ave rage glucose which is %A1C expressed asaverage glucose, using the formula of the V1H-MozwlhpQnkyebe Glucose study (ADAG), Diabetes Care, Vol.31,#8,2007 10/25/2024 11:1 1 AM EST 10/25/2024 11:11 AM EST Generic External Data Provider LAB BLOOD ORDERAB LES Final Result Performing Organization Address [facility] Co de Phone Number [facility] [address] [place] [phone] * Ferritin (10/25/2024 11:11 AM EST) Ferritin 43 10 - 122 ng/mL [facility] 10/25/2024 11:1 1 AM EST 10/25/2024 11:11 AM EST Generic External Data Provider LAB BLOOD ORDERAB LES Final Result Performing Organization Address [facility] Co az Phone Number [facility] [address] [place] [phone] * (ABNORMAL) Lipid Panel, Standard (10/25/2024 11:11 AM EST) Triglycerides 83 <150 mg/dL [facility] Comment:Desirable Triglyceri de: less than 150 mg/dLBorderline High Triglyceride 150-199 mg/dLHigh Triglyceride: 200-499 mg/dLVery High Triglyceride: greater than or equal to 5OO mg/dL Cholesterol 139 <200 mg/dL [facility] Comment:Desirable Cholestero l: less than 200 mg/dLBorderline High Cholesterol: 200-239 mg/dLHigh Cholesterol: greater than 239 mg/dL LDL Cholesterol Calculated 87 <100 mg/dL [facility] Comment:Desirable LDL: less than 100 mg/dLNear Optimal/Above Optimal LDL: 110- 129 mg/dLBorderline High LDL: 130-159 mg/dLHigh LDL: 160-189 mg/dLVery High LDL: greater than or equal to 190 mg/dL HDL Cholesterol 36(L) >40 mg/dL [facility] Comment:Desirable HDL: great er than 40 mg/dL Note: This HDL assay may give artificially low results in patients with liver disease. 10/25/2024 11:1 1 AM EST 10/25/2024 11:11 AM EST us Generic External Data Provider LAB BLOOD ORDERAB LES Final Result [facility] [address] [place] [phone] * (ABNORMAL) Comprehensive Metabolic Panel (10/25/2024 11:11 AM EST) Sodium 141 135 - 145 mmol/L [facility] Potassium 4.1 3.3 - 5.1 mmol/L [facility] Chloride 112(H) 96 - 108 mmol/L [facility] Carbon Dioxide 25 22 - 29 mmol/L [facility] Anion Gap 8(L) 12 - 20 [facility] Urea Nitrogen (BUN) 14 9 - 16 mg/dL [facility] Creatinine, Serum 0.65 0.5 - 1.4 mg/dL [facility] Estimated Glomerular Filt Rate >60 [facility] Comment:Chronic Kidney Disea se: Estimated GFR < 60 mL/min/1.71s4Buiybp Kidney Disease: Estimated GFR < 15 mL/min/1.73m2 Glucose 92 60 - 115 mg/dL [facility] Calcium 8.8 8.4 - 10.2 mg/dL [facility] Bilirubin, Total 0.4 0.0 - 1.0 mg/dL [facility] Aspartate Amino Transferase 24 5 - 31 U/L [facility] Alanine Aminotransferase 36(H) 0 - 31 U/L [facility] Total Protein 7.0 6.5 - 8.0 g/dL [facility] Albumin Level 4.2 3.5 - 5.0 g/dL [facility] Alkaline Phosphatase 70 39 - 117 U/L [facility] 10/25/2024 11:1 1 AM EST 10/25/2024 11:11 AM EST us Generic External Data Provider LAB BLOOD ORDERAB LES Final Result [facility] [address] [place] [phone] * US Abdomen Comp w elastography (10/25/2024 10:24 AM EST) Anatomical Region Laterality Modality Abdomen Ultrasound 10/25/2024 10:2 4 AM EST Narrative 12/05/2024 9:11 AM EST ? [facility] ?[address] ?[place] [address] ? Ultrasound Report ? Signed ? Patient: Renata Torres ?MR#: [id number] ? : 2000 ?Acct:[id number] ? Age/Sex: 24 / F ?ADM Date: 10/25/24 ? Loc: HO.US ? Attending Dr: Modesto Yoo MD ? Ordering Physician: Modesto Yoo MD ?? Date of Service: 10/25/24 ?? Procedure(s): US abdomen comp w elastography ?? Accession Number(s): [id number] ? cc: Mary Doty MD; Modesto Yoo [...] Radiologists in Ultrasound Liver Stiffness Thresholds (2020): ? LIVER STIFFNESS THRESHOLDS: ?? *Shear wave [...] DD/ 1024 ? TD/TT: 10/25/24 1035 ? Emergency Room Rn: ? Procedure Note Rina, Image - 12/05/[address] [address] Ultrasound Report Signed Patient: Arnulfo Torres#: [id number] : 2000Acct:[id number] Age/Sex: 24 / FADM Date: 10/25/24 Loc: HO.US Attending Dr: Modesto Yoo MD Ordering Physician: Modesto Yoo MD Date of Service: 10/25/24 Procedure(s): US abdomen comp w elastography Accession Number(s): [id number] cc: Mary Doty MD; Modesto Yoo MD [...] by: Raj Stafford MD 12/05/2024 09:08 AM EST Dictated By: Raj Stafford MD Signed By: <Electronically signed by Raj Stafford MD in OV> 12/05/24 0908 DD/ 1024 TD/TT: 10/25/24 1035 Emergency Room Rn: us [facility] External Provider IMG US PROCEDURES Final Result * Hematoxylin and Eosin Stain (10/11/2024 10:17 AM EST) 10/11/2024 10:1 7 AM EST 10/11/2024 11:43 AM EST Narrative [facility] - 10/13/2024 12:09 PM EST ----- ------- Name: TorresKarrieRenata ? Age/Sex: 24/F ? : 2000 Unit#: [id number] ?? Attend Dr: Modesto Yoo MD ?Re10/11/24 ?Status: DEP SDC ? Location: HO.SSS ?Disch: ? ----- ------- SPEC : [id number] ? RECD: 10/11/24-1142 ? STATUS: ??SOUT ? REQ NUM: [id number] ? DEANA: 10/11/24-1017 ? SUBM DR: Modesto Yoo MD ? ENTERED: ??10/11/24-337 ?SP TYPE: Surgical ? OTHR DR: Mary [...] CONTINUED ON NEXT PAGE ----- ------- Name: Torres,Renata ? Age/Sex: 24/F ? : 2000 Unit#: [id number] ?? Attend Dr: Modesto Yoo MD ?Re10/11/24 ?Status: DEP SDC ? Location: HO.SSS ?Disch: ? ----- ------- SPEC : [id number] ? RECD: 10/11/24-1142 ? STATUS: ??SOUT ? REQ NUM: [id number] ? DEANA: 10/11/24-1017 ? SUBM DR: Modesto Yoo MD ? ENTERED: ??10/11/24-1152 ?SP TYPE: Surgical ? OTHR DR: Mary Doty MD ORDERED: ??HE Stain/, Gross Micro L4/5, IHC/2, Special st. 2/4, [...] microscopic examination, 2 pieces in cassette E. ??[facility] Special studies ordered and performed: Immunostain for H. pylori on B and C; AB/PAS stains on A, B, C and D Copies To: ?? Mary Doty MD ?? [address] [facility] ?? [place] [address] ?? [phone] ?? Modesto Yoo MD ?? [facility] Weight Management Program ?? [address] ?? [place] [address] ?? [phone] ----- ------- Signed (signature on file) Allan Cole MD 10/13/24 4202 ? ----- ------- ? END OF REPORT ? us Generic External Data Provider LAB BLOOD ORDERAB LES Final Result Performing Organization Address [facility] Co de Phone Number [facility] [address] [place] [phone] * HCG, Qualitative, Urine (10/11/2024 9:32 AM EST) Pathologist [facility] Urine NEGATIVE NEGATIVE [facility] Comment:This test was develo ped to detect early . Falsenegative results may occur after the 5th - 7th week ofpregnancy when using this test method. If clinicallyindicated, consider a serum hCG. 10/11/2024 9:32 AM EST 10/11/2024 9:47 AM EST us Generic External Data Provider LAB URINE ORDERAB LES Final Result Performing Organization Address [facility] de Phone Number [facility] [address] [place] [phone] * Hepatitis C Antibody with Reflex to HCV, RNA, Quantitative, Real-Time PCR (03/24/2024 2:34 PM EDT) Pathologist [facility] Hepatitis C Antibody Nonreactive Nonreactive [facility] Comment:Antibodies to HCV no t detected; does not exclude early acuteHCV infection. Blood Venous blood specimen / Unknown 03/24/2024 2:34 PM EDT 03/24/2024 4:07 PM EDT us Mary Culver MD LAB BLOOD ORDERAB LES Final Result Performing Organization Address [facility]/ZIP Co de Phone Number [facility] [address] [place] [phone] * HIV-1/2 Antigen and Antibodies, Fourth Generation, with Reflexes (03/24/2024 2:34 PM EDT) HIV AB/AG Nonreactive Nonreactive [facility] Comment:HIV-1 p24 Ag and/or HIV-1/HIV-2 Ab not detected.A test result that is nonreactive does not exclude thepossibility of exposure to or infection with HIV-1 and/orHIV-2. Nonreactive results in this assay for individualswith prior exposure to HIV-1 and/or HIV-2 may be due toantigen and antibody levels that are below the limit ofdetection of this assay.The [employer] HIV Ag/Ab Combo assay result andsupplemental assay results should be interpreted inconjunction with the patient's clinical presentation,history and other laboratory results. If the results areinconsistent with clinical evidence, additional testing issuggested to confirm the result. Blood Venous blood specimen / Unknown 03/24/2024 2:34 PM EDT 03/24/2024 4:07 PM EDT us Mary Culver MD LAB BLOOD ORDERAB LES Final Result [facility] [address] [place] [phone] from Last 3 Months or Most Recently Relevant to Health Maintenance Insurance [facility] C3 Care Teams Client Coordinator Relationship Specialty Start Date End Date Mary Doty MD [address] [place] [phone] PCP - General Internal Medicine 02/23/24
--- OUTSIDE RECORDS SUMMARY | 2024-12-27 09:35 | XMS_ITS | Encounter Summary ---
Author Organization [employer] Address [address] [facility] [address]t [place] [address] Care Team Providers Care Supervisor Education Name Role Phone Mary Doty MD Primary Care Pro vider Reason for Visit * Reason Comments Med Refill Encounter Details Date Type Department Care Team (Late st Contact Info) Description 12/07/2022 Refill [facility] [address] [place] [phone] Name, MD Dariel [address] [place] [phone] Social History Tobacco Use Types Packs/Day Years [...] on filedocumented in this encounter Care Teams Supervisor Education Relationship Specialty Start Date End Date Mary Doty MD [address] [place], [place] [phone] PCP - General Internal Medicine 02/23/24 documented as of this encounter
--- OUTSIDE RECORDS SUMMARY | 2024-12-27 09:35 | XMS_ITS | Encounter Summary ---
Author Organization [employer] Address [address] [facility] [address]t [place] [address] Care Team Providers Care X Ray Service Technician Name Role Phone Mary Doty MD Primary Care Pro vider Reason for Visit * Reason Comments Care Management [facility] Graduation Encounter Details Date Type Department Care Team ([facility] st Contact Info) Description 12/20/2024 Telephone [facility] MEDICINE [address] [place], [place] [phone] Mary Doty MD [address] [place] [phone] Care Management ([facility] Graduation) Social History Tobacco Use Types Packs/Day Years [...] encounter Progress Notes * Alicia Solis - 12/20/2024 10:56 AM EST Graduation CM Alicia Solis RN had previously placed outbound call to the patient with the intentions of graduation from the Care Management Program. Progress towards the set goals has been made and impending graduation from the program has been discussed in detail with the patient during prior conversations. CM placed additional outbound call to the patient to graduate from the program. No answer at this time. LVM introducing herself from [facility] CM Department. CM notified patient of their graduation from the Care Management Program. Education provided on how to receive services in the future. CM reinforced direct contact information or CHW for any addit ional questions or concerns. Education provided on Walk-In Urgent Care located in [facility] of [facility]. Patient provided with after-hours line for [facility], , which offer night time triage service andoption to transfer to public information director provider if needed. documented in this encounter Plan of Treatment Not on file documented as of this encounter Visit Diagnoses Not on filedocumented in this encounter Additional Health Concerns Assessment Noted Time PHQ-9 Depression Total Score: 16 024 9:19 AM EDT documented as of this encounter Care Teams X Ray Service Technician Relationship Specialty Start Date End Date Mary Doty MD [address] [place] [phone] PCP - General Internal Medicine 02/23/24 documented as of this encounter
== END 2024-12-27 09:22 | disposition home or self-care (01) ==
LOC: HO.XRAY 09:21
PROVIDERS: PCP Student in an Organized Health Care Education/Training Program; Visit Provider Surgery
DX: E66.9 Obesity, unspecified (principal); Z68.30 Body mass index [BMI] 30.0-30.9, adult
CPT/HCPCS: 74246

== ENCOUNTER → 2024-12-27 09:22 | Outpatient (BNV) | payer MEDICAID, SELFPAY | PROVIDERS: PCP Student in an Organized Health Care Education/Training Program; Visit Provider Physician Assistant Surgical | DX: E66.9 Obesity, unspecified (principal) | CPT/HCPCS: 74246; 74248 ==

== ENCOUNTER 2025-01-08 12:00 | Outpatient (AMB) | payer OTHER, SELFPAY ==
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
--- OUTSIDE RECORDS SUMMARY | 2025-01-08 15:26 | XMS_ITS | Clinical Summary ---
Author Organization [employer] Address [address] [facility] [address] [place] [address] Care Team Providers Care Ammonia Technician Name Role Phone Mary Doty MD [...] Encounters Date Type Department Care Team Description 12/27/2024 Orders Only [facility] External Provider, [facility] 12/20/2024 Telephone [facility] [address] [place] [address] Mary Doty MD Care Management ([facility] Graduation) 11/22/2024 Telephone [facility] [address] [place] [address] Alicia Solis, RN Care Management ([facility] TC #3-lvm) 10/27/2024 Orders Only [facility] External Provider, [facility] 10/26/2024 Telephone [facility] [address], [place] [phone] Alicia Solis, RN Care Management ([facility] TC #2-lvm) 10/25/2024 Orders Only [facility] External Provider, [facility] 10/13/2024 Telephone [facility] [address] [place] [address] Caron Alvarez, CONOR Med Refill (Wegovy notification) from Last 3 Months Immunizations Name Administration [...] tox oid, preservative free, adsorbed 01/16/2011,07/15/2006 Tdap 10/26/2023, 1,08/12/2019,06/07 Varicella 01/16/2011,08/11/2004 Family History Medical History Relation [...] Procedure Name Priority Date/Time Associated Diagnosis Comments FL UPPER GI W AIR Routine 12/27/2024 9:3 6 AM EST XR CHEST 2 VIEWS Routine 10/27/2024 2:10 [...] Recently Relevant to Health Maintenance Results * FL upper GI w air (12/27/2024 9:36 AM EST) Anatomical Region Laterality Modality Body Radiographic Rea ging 12/27/2024 9:36 AM EST Narrative 12/29/2024 9:38 AM EST ? [facility] [facility] ?[address] ?[place] [address] ? Fluoroscopy Report ? Signed ? Patient: Torres,Renata ?MR#: [id number] ? : 2000 ?Acct:[id number] ? Age/Sex: 24 / F ?ADM Date: 12/27/24 ? Loc: HO.XRAY ? Attending Dr: Modesto Yoo MD ? Ordering Physician: Modesto Yoo MD ?? Date of Service: 12/27/24 ?? Procedure(s): FL upper GI w air ?? Accession Number(s): [id number] ? cc: Mary Doty MD; Modesto Yoo MD ? EXAMINATION: ?? XR FLUOROSCOPY UPPER GI WITH AIR ? CLINICAL INFORMATION: ?? Preoperative evaluation prior to bariatric surgery ? COMPARISON: ?? None ? TECHNIQUE: ?? Fluoroscopic air contrast upper GI examination was performed utilizing ?? standard techniques with thin and thick barium and effervescent ?? granules. Numerous spot images were obtained. ? FINDINGS: ? Dual and single contrast images of the esophagus demonstrate normal ?? caliber, contour, and mucosal pattern. No evidence of stricture, mass, ?? or ulcerations identified. Esophageal peristalsis was normal. ? No evidence of hiatus hernia identified. No significant ?? gastroesophageal reflux was seen during the course of the examination ?? and on reflux views. ? Surgical clips are present in the upper quadrant. ? Dual contrast and single contrast images of the stomach demonstrated a ?? normal contour. The areae gastricae have a prominent appearance, ?? suggestive of mild gastritis. No masses or ulcerations are seen. ?? Contrast freely passed into the gastric antrum and duodenal bulb ?? without delay. ? Single and air-contrast images of the duodenal bulb demonstrate no ?? abnormality. The duodenal sweep has a normal appearance, course, and ?? mucosal fold appearance. The imaged proximal jejunum has a normal fold ?? pattern and caliber. ? FLUOROSCOPY TIME: ?? 3 minutes 54 seconds ? Number of Spot Images: 10 ?? Number of Cine: 13 ? DOSE AREA PRODUCT: ?? 3204 uGy-m2 (microgray-meter squared) ? FL/FL upper GI w air ?? IMPRESSION: ?? 1. Prominent appearance of the areae gastricae, suggestive of possible ?? mild gastritis. Otherwise, unremarkable upper GI series. ?? 2. Status post cholecystectomy. ? This procedure was performed by Fernando Bergman PA-C, and supervised by ?? Dr. Cat ? Electronically signed by: ??Sage Cat MD ??12/29/2024 09:35 AM EST RP ? Dictated By: ?Fernando Bergman ? Signed By: ?<Electronically signed by Fernando Bergman in OV> ? 12/29/24 0935 ?<Electronically signed by Sage Cat MD in OV> ? 12/29/24 0937 ? DD/ 0936 ? TD/TT: 12/27/24 0948 ? Scrap Preparer: ? Procedure Note Donotuseinterpreter, Image - 12/29/[address] [address] Fluoroscopy Report Signed Patient: Arnulfo Torres#: [id number] : 2000Acct:[id number] Age/Sex: 24 FADM Date: 12/27/24 Loc: BRITTNEE Attending Dr: Modesto Yoo MD Ordering Physician: Modesto Yoo MD Date of Service: 12/27/24 Procedure(s): FL upper GI w air Accession Number(s): [id number] cc: Mary Doty MD; Modesto Yoo MD EXAMINATION: XR FLUOROSCOPY UPPER GI WITH AIR CLINICAL INFORMATION: Preoperative evaluation prior to bariatric surgery COMPARISON: None TECHNIQUE: Fluoroscopic air contrast upper GI examination was performed utilizing standard techniques with thin and thick barium and effervescent granules. Numerous spot images were obtained. FINDINGS: Dual and single contrast images of the esophagus demonstrate normal caliber, contour, and mucosal pattern. No evidence of stricture, mass, or ulcerations identified. Esophageal peristalsis was normal. No evidence of hiatus hernia identified. No significant gastroesophageal reflux was seen during the course of the examination and on reflux views. Surgical clips are present in the upper quadrant. Dual contrast and single contrast images of the stomach demonstrated a normal contour. The areae gastricae have a prominent appearance, suggestive of mild gastritis. No masses or ulcerations are seen. Contrast freely passed into the gastric antrum and duodenal bulb without delay. Single and air-contrast images of the duodenal bulb demonstrate no abnormality. The duodenal sweep has a normal appearance, course, and mucosal fold appearance. The imaged proximal jejunum has a normal fold pattern and caliber. FLUOROSCOPY TIME: 3 minutes 54 seconds Number of Spot Images: 10 Number of Cine: 13 DOSE AREA PRODUCT: 3204 uGy-m2 (microgray-meter squared) FL/FL upper GI w air IMPRESSION: 1. Prominent appearance of the areae gastricae, suggestive of possible mild gastritis. Otherwise, unremarkable upper GI series. 2. Status post cholecystectomy. This procedure was performed by Fernando Bergman PA-C, and supervised by Dr. Cat Electronically signed by: Sage Cat MD 12/29/2024 09:35 AM EST RP Dictated By: Fernando Bergman Signed By: <Electronically signed by Fernando Bergman in OV> 12/29/24 0935 <Electronically signed by Sage Cat MD in OV> 12/29/24 0937 DD/ 0936 TD/TT: 12/27/24 0948 Scrap Preparer: [facility] External Provider IMG FLU OROSCOPY PROCEDURES Final Result * XR Chest 2 Views (10/27/2024 2:10 PM EST) Anatomical Region Laterality Modality Chest Radiographic Rea ging 10/27/2024 2:10 PM EST Narrative 10/28/2024 11:30 AM EST ? [facility] ?[address] ?[place] [address] ?XRay Report ? Signed ? Patient: Torres,Renata ?MR#: [id number] ? : 2000 ?Acct:[id number] ? Age/Sex: 24 / F ?ADM Date: 12/20/24 ? Loc: HO.CARD ? Attending : Modesto Yoo MD ? Ordering Physician: Raftopoulos,Modesto MD ?? Date of Service: 10/27/24 ?? Procedure(s): XR chest 2V ?? Accession Number(s): [id number] ? cc: Mary Doty MD; Modesto Yoo [...] DD/ 1410 ? TD/TT: 10/27/24 1421 ? Scrap Preparer: DM ? Procedure Note Rina, Image - 10/28/2024 [place] [address] XRay Report Signed Patient: Renata TorresMR#: [id number] : 2000Acct:[id number] Age/Sex: 24 / FADM Date: 10/27/24 Loc: DANIA.CARD Attending Dr: Modesto Yoo MD Ordering Physician: Modesto Yoo MD Date of Service: 10/27/24 Procedure(s): XR chest 2V Accession Number(s): [id number] cc: Mary Doty MD; Modesto Yoo MD [...] 10/28/24 1127 DD/ 1410 TD/TT: 10/27/24 1421 Scrap Preparer: HERIBERTO [facility] External Provider IMG XR PROCEDURES Edited Result - Final * (ABNORMAL) Vitamin D, 25-Hydroxy, Total, Immunoassay (10/25/2024 11:11 AM EST) Vitamin D 25-OH Total 21.4(L) >30 ng/mL [facility] Comment:Health Based Referen ce Values*< 20 ng/mL Ozuwyxzyb88-13 ng/mL Insufficient> 30 ng/mL Sufficient*Shelly COLE. N [...] Provider LAB BLOOD ORDERAB LES Final Result [facility] [address] [place] [phone] * Vitamin B12 (Cobalamin) and Folate Panel, Serum (10/25/2024 11:11 AM EST) Vitamin B12 455 200 - 900 pg/mL [facility] Comment:NORMAL 200-900 PG/ML INDETERMINATE 160-199 PG/ML DEFICIENT < 160 PG/ML Folate 12.6 > or = 4.0 ng/mL [facility] Comment:Reference Values:> o r = 4.0 ng/mL< 4.0 ng/mL suggests folate deficiency Methotrexate, aminopterin and folinic acid(leucovorin) are chemotherapeutic agents whose molecularstructures are similar to folate; therefore, the Architectfolate assay cannot be used for patients using these drugs. 10/25/2024 11:1 1 AM EST 10/25/2024 11:11 AM EST Generic External Data Provider LAB BLOOD ORDERAB LES Final Result Performing Organization Address [facility] de Phone Number [facility] [address] [place] [phone] * TSH with Reflex to Free T4 (10/25/2024 11:11 AM EST) Pathologist [facility] TSH reflex Free T4 0.76 0.32 - 4.0 uIU/mL [facility] 10/25/2024 11:1 1 AM EST 10/25/2024 11:11 AM EST Generic External Data Provider LAB BLOOD ORDERAB LES Final Result Performing Organization Address [facility] Phone Number [facility] [address] [place] [phone] * CBC auto differential (10/25/2024 11:11 AM EST) Pathologist [facility] White Blood Count 7.2 4.8 - 10.8 X10*3/uL [facility] Red Blood Count 5.09 4.20 - 5.50 X10*6/uL [facility] Hemoglobin 14.5 12.0 - 16.0 g/dl [facility] Hematocrit 43.1 37.0 - 47.0 % [facility] Mean Corpuscular Volume 84.7 80.0 - 98.0 fL [facility] Mean Corpuscular Hemoglobin 28.5 27.0 - 33.0 pg [facility] Mean Corpuscular HGB Conc 33.6 31.0 - 35.0 g/dl [facility] Red Cell Distribution Width 12.9 11.0 - 16.0 % [facility] Platelet Count 245 160 - 400 X10*3/uL [facility] Mean Platelet Volume 10.3 9.4 - 12.3 fL [facility] Neutrophils Percent Auto 58.2 45 - 73 % [facility] Imm Gran Pct Auto 0.1 0.0 - 0.4 % [facility] Lymphocytes Percent Auto 31.5 20 - 40 % [facility] Monocytes Percent Auto 7.4 2 - 11 % [facility] Eosinophils Percent Auto 2.2 0 - 4 % [facility] Basophils Percent Auto 0.6 0 - 2 % [facility] NRBC Pct Auto 0.0 0.0 - 0.2 /100WBC [facility] Neutrophils Absolute Auto 4.2 2.0 - 8.3 x10*3/uL [facility] Imm Gran Abs Auto 0.01 0.00 - 0.03 X10*3/uL [facility] Lymphocytes Absolute Auto 2.3 1.2 - 4.9 X10*3/uL [facility] Monocytes Absolute Auto 0.5 0.1 - 1.2 X10*3/uL [facility] Eosinophils Absolute Auto 0.2 0.0 - 0.4 X10*3/uL [facility] Basophils Absolute Auto 0.0 0.0 - 0.2 X10*3/uL [facility] NRBC Abs Auto 0.000 0.0 - 0.012 X10*3/uL [facility] 10/25/2024 11:1 1 AM EST 10/25/2024 11:11 AM EST us Generic External Data Provider LAB BLOOD ORDERAB LES Final Result [facility] [address] [place], [place] [phone] * Iron And Total Iron Binding Capacity (10/25/2024 11:11 AM EST) Iron 62 30 - 160 mcg/dL [facility] Total Iron Binding Capacity 315 228 - 428 mcg/dL [facility] Percent Iron Saturation 20 15 - 50 % [facility] Unsaturated Iron Binding 253 ug/dL [facility] 10/25/2024 11:1 1 AM EST 10/25/2024 11:11 AM EST Generic External Data Provider LAB BLOOD ORDERAB LES Final Result Performing Organization Address [facility] de Phone Number [facility] [address] [place] [phone] * Insulin (10/25/2024 11:11 AM EST) Insulin 12 2 - 29 uU/mL [facility] Comment:This test was perfor med using [...] ORDERAB LES Final Result Performing Organization Address [facility] Phone Number [facility] [address] [place] [phone] * Zinc (10/25/2024 11:11 AM EST) Zinc 80 60 - 130 mcg/dL [facility] Comment:This test was develo ped and its analytical performancecharacteristics have been determined by [employer] [place], [place]. It hasnot been cleared or approved by the U.S. Food and DrugAdministration. This assay has been validated pursuantto the CLIA regulations and is used for clinicalpurposes.THIS TEST WAS PERFORMED AT:[employer] [place] [address]TZBSJUOISAAC KIMBLAL MD,PHD 10/25/2024 11:1 1 AM EST 10/25/2024 11:11 AM EST us Generic External Data Provider LAB BLOOD ORDERAB LES Final Result Performing Organization Address [facility] Co de Phone Number [facility] [address] [place] [phone] * Vitamin A (10/25/2024 11:11 AM EST) Vitamin A (Retinol) 51 38 - 98 mcg/dL [facility] Comment:Vitamin supplementat ion within 24 hours prior toblood draw may affect the accuracy of the results.This test was developed and its analytical performancecharacteristics have been determined by [employer] [place], [place]. It hasnot been cleared or approved by the U.S. Food and DrugAdministration. This assay has been validated pursuantto the CLIA regulations and is used for clinicalpurposes.THIS TEST WAS PERFORMED AT:[employer] [place] [address]REPDAMHISAAC KIMBALL MD,PHD 10/25/2024 11:1 1 AM EST 10/25/2024 11:11 AM EST us Generic External Data Provider LAB BLOOD ORDERAB LES Final Result Performing Organization Address [facility] de Phone Number [facility] [address] [place] [phone] * C-reactive Protein (10/25/2024 11:11 AM EST) C Reactive Protein 0.29 < or = 0.50 mg/dL [facility] 10/25/2024 11:1 1 AM EST 10/25/2024 11:11 AM EST Generic External Data Provider LAB BLOOD ORDERAB LES Final Result Performing Organization Address [facility] Co de Phone Number [facility] [address] [place] [phone] * Vitamin B1 (10/25/2024 11:11 AM EST) Vitamin B1 13 8 - 30 nmol/L [facility] Comment:Vitamin supplementat ion within 24 hours prior toblood draw may affect the accuracy of the results.This test was developed and its analytical performancecharacteristics have been determined by [employer] [place], [place]. It hasnot been cleared or approved by the U.S. Food and DrugAdministration. This assay has been validated pursuantto the CLIA regulations and is used for clinicalpurposes.THIS TEST WAS PERFORMED AT:[employer] [place] [address]WYBUQVKISAAC KIMBALL MD,PHD 10/25/2024 11:1 1 AM EST 10/25/2024 11:11 AM EST us Generic External Data Provider LAB BLOOD ORDERAB LES Final Result [facility] [address] [place] [phone] * Hemoglobin A1c (10/25/2024 11:11 AM EST) Hemoglobin A1c 5.3 <6.0 % [facility] Comment:Hemoglobin A1C Refer ence Range Adults: 4.8 - 6.0 % Non diabetic: < 6.0 % Goal: < 7.0 %Additional Action Suggested: > 8.0 %Note: Hemoglobin A1c results are invalid for patients with abnormal amounts of HbF. Blood transfusions may impact the HbA1c concentration in the patient sample. Estimated Average Glucose 105 mg/dL [facility] Comment:eAG = Estimated ave rage glucose which is %A1C expressed asaverage glucose, using the formula of the R5Z-ZabhjzhClhzcir Glucose study (ADAG), Diabetes Care, Vol.31,#8,Jun. 2007 10/25/2024 11:1 1 AM EST 10/25/2024 11:11 AM EST us Generic External Data Provider LAB BLOOD ORDERAB LES Final Result Performing Organization Address City/[facility]/ZIP Co de Phone Number [facility] [address] [place] [phone] * Ferritin (10/25/2024 11:11 AM EST) Ferritin 43 10 - 122 ng/mL [facility] 10/25/2024 11:1 1 AM EST 10/25/2024 11:11 AM EST Generic External Data Provider LAB BLOOD ORDERAB LES Final Result Performing Organization Address [facility] de Phone Number [facility] [address] [place] [phone] * (ABNORMAL) Lipid Panel, Standard (10/25/2024 11:11 AM EST) Triglycerides 83 <150 mg/dL [facility] Comment:Desirable Triglyceri de: less than 150 mg/dLBorderline High Triglyceride 150-199 mg/dLHigh Triglyceride: 200-499 mg/dLVery High Triglyceride: greater than or equal to 5OO mg/dL Cholesterol 139 <200 mg/dL [facility] Comment:Desirable Cholestero l: less than 200 mg/dLBorderline High Cholesterol: 200-239 mg/dLHigh Cholesterol: greater than 239 mg/dL LDL Cholesterol Calculated 87 <100 mg/dL [facility] Comment:Desirable LDL: less than 100 mg/dLNear Optimal/Above Optimal LDL: 110- 129 mg/dLBorderline High LDL: 130-159 mg/dLHigh LDL: 160-189 mg/dLVery High LDL: greater than or equal to 190 mg/dL HDL Cholesterol 36(L) >40 mg/dL [facility] Comment:Desirable HDL: great er than 40 mg/dL Note: This HDL assay may give artificially low results in patients with liver disease. 10/25/2024 11:1 1 AM EST 10/25/2024 11:11 AM EST us Generic External Data Provider LAB BLOOD ORDERAB LES Final Result [facility] [address] [place] [phone] * (ABNORMAL) Comprehensive Metabolic Panel (10/25/2024 11:11 AM EST) Sodium 141 135 - 145 mmol/L [facility] Potassium 4.1 3.3 - 5.1 mmol/L [facility] Chloride 112(H) 96 - 108 mmol/L [facility] Carbon Dioxide 25 22 - 29 mmol/L [facility] Anion Gap 8(L) 12 - 20 [facility] Urea Nitrogen (BUN) 14 9 - 16 mg/dL [facility] Creatinine, Serum 0.65 0.5 - 1.4 mg/dL [facility] Estimated Glomerular Filt Rate >60 [facility] Comment:Chronic Kidney Disea se: Estimated GFR < 60 mL/min/1.42l9Hmpbtw Kidney Disease: Estimated GFR < 15 mL/min/1.73m2 Glucose 92 60 - 115 mg/dL [facility] Calcium 8.8 8.4 - 10.2 mg/dL [facility] Bilirubin, Total 0.4 0.0 - 1.0 mg/dL [facility] Aspartate Amino Transferase 24 5 - 31 U/L [facility] Alanine Aminotransferase 36(H) 0 - 31 U/L [facility] Total Protein 7.0 6.5 - 8.0 g/dL [facility] Albumin Level 4.2 3.5 - 5.0 g/dL [facility] Alkaline Phosphatase 70 39 - 117 U/L [facility] 10/25/2024 11:1 1 AM EST 10/25/2024 11:11 AM EST us Generic External Data Provider LAB BLOOD ORDERAB LES Final Result Performing Organization Address City/[facility]/ZIP Co de Phone Number [facility] [address] [place] [phone] * US Abdomen Comp w elastography (10/25/2024 10:24 AM EST) Anatomical Region Laterality Modality Abdomen Ultrasound 10/25/2024 10:2 4 AM EST Narrative 12/05/2024 9:11 AM EST ? [facility] ?[address] ?[place] [address] ? Ultrasound Report ? Signed ? Patient: Torres,Renata ?MR#: [id number] ? : 2000 ?Acct:[id number] ? Age/Sex: 24 / F ?ADM Date: 10/25/24 ? Loc: HO.US ? Attending Dr: Modesto Yoo MD ? Ordering Physician: Modesto Yoo MD ?? Date of Service: 10/25/24 ?? Procedure(s): US abdomen comp w elastography ?? Accession Number(s): [id number] ? cc: Mary Doty MD; Modesto Yoo [...] DD/ 1024 ? TD/TT: 10/25/24 1035 ? Scrap Preparer: ? Procedure Note Rina, Image - 12/05/2024 [place] [address] Ultrasound Report Signed Patient: Arnulfo Torres#: [id number] : 2000Acct:[id number] Age/Sex: 24 / FADM Date: 10/25/24 Loc: HO.US Attending Dr: Modesto Yoo MD Ordering Physician: Modesto Yoo MD Date of Service: 10/25/24 Procedure(s): US abdomen comp w elastography Accession Number(s): [id number] cc: Mary Doty MD; Modesto Yoo MD [...] 12/05/24 0908 DD/ 1024 TD/TT: 10/25/24 1035 Scrap Preparer: us [facility] External Provider IMG US PROCEDURES Final Result * Hematoxylin and Eosin Stain (10/11/2024 10:17 AM EST) 10/11/2024 10:1 7 AM EST 10/11/2024 11:43 AM EST [facility] - 10/13/2024 12:09 PM EST ----- ------- Name: Renata Torres ? Age/Sex: 24/F ? : 2000 Unit#: [id number] ?? Attend Dr: Modesto Yoo MD ?Re10/11/24 ?Status: DEP SDC ? Location: HO.SSS ?Disch: ? ----- ------- SPEC : [id number] ? RECD: 10/11/24-3 ? STATUS: ??SOUT ? REQ NUM: [id number] ? DEANA: 10/11/24-1017 ? SUBM DR: Modesto Yoo MD ? ENTERED: ??10/11/24-3 ?SP TYPE: Surgical ? OTHR DR: Mary [...] ? Age/Sex: 24/F ? : 2000 Unit#: [id number] ?? Attend Dr: Modesto Yoo MD ?Re10/11/24 ?Status: DEP SDC ? Location: HO.SSS ?Disch: ? ----- ------- SPEC : [id number] ? RECD: 10/11/24 ? STATUS: ??SOUT ? REQ NUM: [id number] ? DEANA: 10/11/24-1017 ? SUBM DR: Modesto [...] microscopic examination, 2 pieces in cassette E. ??[facility] Special studies ordered and performed: Immunostain for H. pylori on B and C; AB/PAS stains on A, B, C and D Copies To: ?? Mary Doty MD ?? [address] [facility] ?? [place] [address] ?? [phone] ?? Modesto Yoo MD ?? [facility] ?? [address] ?? [place] [address] ?? [phone] ----- ------- Signed (signature on file) Allan Cole MD 10/13/24 9308 ? ----- ------- ? END OF REPORT ? us Generic External Data Provider LAB BLOOD ORDERAB LES Final Result [facility] [address] [place] [address] [phone] * HCG, Qualitative, Urine (10/11/2024 9:32 AM EST) Pathologist [facility] Urine NEGATIVE NEGATIVE [facility] Comment:This test was develo ped to detect early . Falsenegative results may occur after the 5th - 7th week ofpregnancy when using this test method. If clinicallyindicated, consider a serum hCG. 10/11/2024 9:32 AM EST 10/11/2024 9:47 AM EST us Generic External Data Provider LAB URINE ORDERAB LES Final Result Performing Organization Address [facility]/ZIP Co de Phone Number [facility] [address] [place] [phone] * Hepatitis C Antibody with Reflex to HCV, RNA, Quantitative, Real-Time PCR (03/24/2024 2:34 PM EDT) Pathologist [facility] Hepatitis C Antibody Nonreactive Nonreactive [facility] Comment:Antibodies to HCV no t detected; does not exclude early acuteHCV infection. Blood Venous blood specimen / Unknown 03/24/2024 2:34 PM EDT 03/24/2024 4:07 PM EDT us Mary Culver MD LAB BLOOD ORDERAB LES Final Result Performing Organization Address City/[facility]/ZIP Co de Phone Number [facility] [address] [place] [phone] * HIV-1/2 Antigen and Antibodies, Fourth Generation, with Reflexes (03/24/2024 2:34 PM EDT) Pathologist [facility] HIV AB/AG Nonreactive Nonreactive [facility] Comment:HIV-1 p24 Ag and/or HIV-1/HIV-2 Ab not detected.A test result that is nonreactive does not exclude thepossibility of exposure to or infection with HIV-1 and/orHIV-2. Nonreactive results in this assay for individualswith prior exposure to HIV-1 and/or HIV-2 may be due toantigen and antibody levels that are below the limit ofdetection of this assay.The [employer] HIV Ag/Ab Combo assay result andsupplemental assay results should be interpreted inconjunction with the patient's clinical presentation,history and other laboratory results. If the results areinconsistent with clinical evidence, additional testing issuggested to confirm the result. Blood Venous blood specimen / Unknown 03/24/2024 2:34 PM EDT 03/24/2024 4:07 PM EDT us Mary Culver MD LAB BLOOD ORDERAB LES Final Result [facility] [address] [place] [phone] from Last 3 Months or Most Recently Relevant to Health Maintenance [facility] Care Teams Ammonia Technician Relationship Specialty Start Date End Date Mary Doty MD [address] [place] [phone] PCP - General Internal Medicine 02/23/24
--- OUTSIDE RECORDS SUMMARY | 2025-01-08 15:26 | XMS_ITS | Clinical Summary ---
Author Organization [facility] ity Address [address] [place] [address] Care Team Providers Care Photoengraving Retoucher Name Role Phone Unavailable Primary Care Provider [...]
--- OUTSIDE RECORDS SUMMARY | 2025-01-08 15:26 | XMS_ITS | Encounter Summary ---
Author Organization [employer] Address [address] [facility] 7t [place] [address] Care Team Providers Care Barrel Coater Name Role Phone Mary Doty MD Primary Care Pro vider Reason for Visit * Reason Comments Care Management [facility] Graduation Encounter Details Date Type Department Care Team ([facility] st Contact Info) Description 12/20/2024 Telephone [facility] MEDICINE [address] [place], [place] [phone] Mary Doty MD [address] [place] [address] Care Management ([facility] Graduation) Social History Tobacco Use Types [...] at this time. LVM introducing herself from [facility] CM Department. CM notified patient of their graduation from the Care Management Program. Education provided on how to receive services in the future. CM reinforced direct contact information or CHW for any addit ional questions or concerns. Education provided on Walk-In Urgent Care located in [facility] of [facility]. Patient provided with after-hours line for [facility], , which offer night time triage service andoption to transfer to boring machine operator production provider if needed. documented in this encounter Plan of Treatment Not on file documented as of this encounter Visit Diagnoses Not on filedocumented in this encounter Additional Health Concerns Assessment Noted Time PHQ-9 Depression Total Score: 16 024 9:19 AM EDT documented as of this encounter Care Teams Barrel Coater Relationship Specialty Start Date End Date Mary Doty MD [address] [place] [phone] PCP - General Internal Medicine 02/23/24 documented as of this encounter
--- OUTSIDE RECORDS SUMMARY | 2025-01-08 15:27 | XMS_ITS | Encounter Summary ---
Author Organization [email or web address] Address [address] [facility] 7t [place] [address] Care Team Providers Care Job Change Crew Member Name Role Phone Mary Doty MD Primary Care Pro vider Reason for Visit * Reason Comments Med Refill Encounter Details Date Type Department Care Team (Late st Contact Info) Description 12/07/2022 Refill [facility] MEDICINE [address] [place] [address] [phone] Name, MD Dariel [address] [place] [phone] Social History Tobacco Use Types Packs/Day Years [...] on filedocumented in this encounter Care Teams Job Change Crew Member Relationship Specialty Start Date End Date Mary Doty MD [address] [place], [place] [phone] PCP - General Internal Medicine 02/23/24 documented as of this encounter
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
== END 2025-01-08 13:00 | disposition home or self-care (01) ==
LOC: HO.HBST 13:10
PROVIDERS: PCP Student in an Organized Health Care Education/Training Program; Visit Provider Counselor Mental Health
DX: F33.1 Major depressive disorder, recurrent, moderate (principal); F41.9 Anxiety disorder, unspecified
CPT/HCPCS: 90837

== ENCOUNTER → 2025-01-08 12:00 | Outpatient (BNVA) | payer OTHER, MEDICAID, SELFPAY | PROVIDERS: PCP Student in an Organized Health Care Education/Training Program; Visit Provider Counselor Mental Health ==

== ENCOUNTER 2025-02-05 13:17 | Outpatient (AMB) | payer OTHER, SELFPAY ==
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
--- OUTSIDE RECORDS SUMMARY | 2025-02-05 14:59 | XMS_ITS | Clinical Summary ---
Author Organization [facility] ity Address [address] [place] [address] Care Team Providers Care Electronic Die Maker Name Role Phone Unavailable Primary Care Provider Unavailabl e Social History Tobacco Use Types Packs/Day Years Used Date Smoking Tobacco: Never Assessed Comments Unknown Sex and Gender Information Value Date Recorded Sex Assigned at Not on file Legal Sex Female 1:35 PM EST Gender Identity Not on file Sexual Orientation Not on file Plan of Treatment Health Maintenance Due Date Last Done Comments DTaP,Tdap,and Td Vaccines (1 - Tdap) 2017 Hepatitis B Vaccines (1 of 3 - 19+ 3-dose series) 2017 Cervical Cancer Screening: P ap Smear 2019 COVID-19 Vaccine ( - 2023-2 5 season) 2024 Influenza Vaccine (#1) 2024 HIB Vaccines Aged Out No longer eligi ble based on patient's age to complete this topic HPV Vaccines Aged Out No longer eligi ble [...]
--- OUTSIDE RECORDS SUMMARY | 2025-02-05 14:59 | XMS_ITS | Encounter Summary ---
Author Organization [employer] Address [address] [facility] 7t [place] [address] Care Team Providers Care Cargo Service Supervisor Name Role Phone Mary Doty MD Primary Care Pro vider Reason for Visit * Reason Comments Med Refill Encounter Details Date Type Department Care Team (Late st Contact Info) Description 12/07/2022 Refill [facility] MEDICINE [address] [place] [address] [phone] Name, MD Dariel [address] [place] [phone] Social History Tobacco Use Types Packs/Day Years [...] on filedocumented in this encounter Care Teams Cargo Service Supervisor Relationship Specialty Start Date End Date Mary Doty MD [address] [place], [place] [phone] PCP - General Internal Medicine 02/23/24 documented as of this encounter
--- OUTSIDE RECORDS SUMMARY | 2025-02-05 14:59 | XMS_ITS | Clinical Summary ---
Author Organization [employer] Address [address] [facility] 7t [place] [address] Care Team Providers Care Bowling Alley Operator Name Role Phone Mary Doty MD Primary [...] Encounters Date Type Department Care Team Description 01/19/2025 Population Health Risk Score [facility] (C3) Department [address] [phone] Provider, Population Health Generic 12/27/2024 Orders Only [facility] External Provider, [facility] 12/20/2024 Telephone [facility] MEDICINE [address] [place], [place] [phone] Mary Doty MD Care Management ([facility] Graduation) 11/22/2024 Telephone [facility] MEDICINE [address] [place] [address] Alicia Solis Care Management ([facility] TC #[id number]) from Last 3 Months Immunizations Name Administration [...] 03/26/2011, 01/16/2011, 07/15/2006 HPV Vaccines Completed 06/13/2013, 07/0 04/2012, 03/12/2011 Hepatitis A Vaccines Completed 06/13/2013, [...] AIR Routine 12/27/2024 9:3 6 AM EST LIPID PANEL, STANDARD Routine 10/25/2024 11:11 AM EST HEPATITIS C AB W/REFL TO [...] EST Narrative 12/29/2024 9:38 AM EST ? [facility] ?[address] ?[place] [address] ? Fluoroscopy Report ? Signed ? Patient: Torres,Renata ?MR#: [id number] ? : 2000 ?Acct:[id number] ? Age/Sex: 24 / F ?ADM Date: 02/19/25 ? Loc: HO.XRAY ? Attending Dr: Modesto Yoo MD ? Ordering Physician: Modesto Yoo MD ?? Date of Service: 12/27/24 ?? Procedure(s): FL upper GI w air ?? Accession Number(s): [id number] ? cc: Mary Doty MD; Modesto Yoo [...] by Fernando Bergman in OV> ? 12/29/24 09 ?<Electronically signed by Sage Cat MD in OV> ? 12/29/24 0937 ? DD/ 0936 ? TD/TT: 12/27/24 0948 ? Data Typist: ? Procedure Note Donotuseinterpreter, Image - 12/29/2024 [place] [address] Fluoroscopy Report Signed Patient: Arnulfo Torres#: [id number] : 2000Acct:[id number] Age/Sex: 24 / FADM Date: 12/27/24 Loc: [facility] Attending Dr: Modesto Yoo MD Ordering Physician: Modesto Yoo MD Date of Service: 12/27/24 Procedure(s): FL upper GI w air Accession Number(s): [id number] cc: Mary Doty MD; Modesto Yoo MD [...] Cat MD 12/29/2024 09:35 AM EST RP Workstation: [id number] Dictated By: Fernando Bergman Signed By: <Electronically signed by Fernando Bergman in OV> 12/29/24 0935 <Electronically signed by Sage Cat MD in OV> 12/29/2437 DD/ 0936 TD/TT: 12/27/24 0948 Data Typist: [facility] External Provider IMG FLU OROSCOPY PROCEDURES Final Result * (ABNORMAL) Lipid Panel, Standard (10/25/2024 11:11 AM EST) Triglycerides 83 <150 mg/dL [facility] Comment:Desirable Triglyceri de: less than 150 mg/dLBorderline High Triglyceride 150-199 mg/dLHigh Triglyceride: 200-499 mg/dLVery High Triglyceride: greater than or equal to 5OO mg/dL Cholesterol 139 <200 mg/dL [facility] Comment:Desirable Cholestero l: less than 200 mg/dLBorderline High Cholesterol: 200-239 mg/dLHigh Cholesterol: greater than 239 mg/dL LDL Cholesterol Calculated 87 <100 mg/dL [facility] Comment:Desirable LDL: less than 100 mg/dLNear Optimal/Above Optimal LDL: 110- 129 mg/dLBorderline High LDL: 130-159 mg/dLHigh LDL: 160-189 mg/dLVery High LDL: greater than or equal to 190 mg/dL HDL Cholesterol 36(L) >40 mg/dL [facility] Comment:Desirable HDL: great er than 40 mg/dL Note: This HDL assay may give artificially low results in patients with liver disease. 10/25/2024 11:1 1 AM EST 10/25/2024 11:11 AM EST Generic External Data Provider LAB BLOOD ORDERAB LES Final Result Performing Organization Address [facility] Co de Phone Number [facility] [address] [place] [address] [phone] * Hepatitis C Antibody with Reflex to HCV, RNA, Quantitative, Real-Time PCR (03/24/2024 2:34 PM EDT) Hepatitis C Antibody Nonreactive Nonreactive [facility] Comment:Antibodies to HCV no t detected; does not exclude early acuteHCV infection. Blood Venous blood specimen / Unknown 03/24/2024 2:34 PM EDT 03/24/2024 4:07 PM EDT us Mary Culver MD LAB BLOOD ORDERAB LES Final Result Performing Organization Address [facility] Co de Phone Number [facility] [address] [place] [phone] * HIV-1/2 Antigen and Antibodies, Fourth Generation, with Reflexes (03/24/2024 2:34 PM EDT) [facility] HIV AB/AG Nonreactive Nonreactive [facility] Comment:HIV-1 p24 Ag and/or HIV-1/HIV-2 Ab not detected.A test result that is nonreactive does not exclude thepossibility of exposure to or infection with HIV-1 and/orHIV-2. Nonreactive results in this assay for individualswith prior exposure to HIV-1 and/or HIV-2 may be due toantigen and antibody levels that are below the limit ofdetection of this assay.The [employer] HIV Ag/Ab Combo assay result andsupplemental assay results should be interpreted inconjunction with the patient's clinical presentation,history and other laboratory results. If the results areinconsistent with clinical evidence, additional testing issuggested to confirm the result. Blood Venous blood specimen / Unknown 03/24/2024 2:34 PM EDT 03/24/2024 4:07 PM EDT us Mary Culver MD LAB BLOOD ORDERAB LES Final Result [facility] [address] [place] [address] [phone] from Last 3 Months or Most Recently Relevant to Health Maintenance Insurance [facility] C3 Care Teams Bowling Alley Operator Relationship Specialty Start Date End Date Mary Doty MD [address] [place] [address] PCP - General Internal Medicine 02/23/24
== END 2025-02-05 14:45 | disposition home or self-care (01) ==
LOC: HO.HBST 13:17
PROVIDERS: PCP Student in an Organized Health Care Education/Training Program; Visit Provider Counselor Mental Health
DX: F33.1 Major depressive disorder, recurrent, moderate (principal); F41.9 Anxiety disorder, unspecified
CPT/HCPCS: 90834

== ENCOUNTER 2025-03-01 09:28 | Outpatient (AMB) | payer MEDICAID, SELFPAY ==
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
--- OUTSIDE RECORDS SUMMARY | 2025-03-01 10:25 | XMS_ITS | Encounter Summary ---
Author Organization [employer] Address [address] [facility] 7t [place] [address] Care Team Providers Care Sleep Lab Technologist Name Role Phone Mary Doty MD Primary Care Pro vider Reason for Visit * Reason Comments Med Refill Encounter Details Date Type Department Care Team (Late st Contact Info) Description 12/07/2022 Refill [facility] MEDICINE [address] [place] [address] [phone] Name, MD Dariel [address] [place] [phone] Social History Tobacco Use Types Packs/Day Years [...] on filedocumented in this encounter Care Teams Sleep Lab Technologist Relationship Specialty Start Date End Date Mary Doty MD [address] [place], [place] [phone] PCP - General Internal Medicine 02/23/24 documented as of this encounter
--- OUTSIDE RECORDS SUMMARY | 2025-03-01 10:25 | XMS_ITS | Clinical Summary ---
Author Organization [employer] Address [address] [facility] 7t [place] [address] Care Team Providers Care Flue Cleaner Name Role Phone Mary Doty MD Primary [...] Team Description 01/19/2025 Population Health Risk Score [facility] (C3) Department [address] [phone] Provider, Population Health Generic 12/27/2024 Orders Only [facility] External Provider, [facility] 12/20/2024 Telephone [facility] MEDICINE [address] [place] [address] Mary Doty MD Care Management ([facility] Graduation) from Last 3 Months Immunizations Name Administration [...] Last Done Comments Alcohol/Substance Use Screening 2010 Tobacco Screening 2010 Family Planning (PISQ) 2013 Pneumococcal Vaccine: Pediatrics (0 to 5 Years) and At-Risk Patients (6 to 49) Years) (1 of 2 - PCV) 2017 Pap Smear 2019 Depression Monitoring 08/24/2024 02/23/2024, 024 Depression Screening 02/22/2025 02/23/2024, 02/23/20 24 SDOH Screening 05/19/2025 05/19/2024 Lipid Panel 10/25/2029 [...] 03/26/2011, 01/16/2011, 07/15/2006 HPV Vaccines Completed 06/13/2013, 0 04/2012, 03/12/2011 Hepatitis A Vaccines Completed 06/13/2013, [...] EST Narrative 12/29/2024 9:38 AM EST ? [facility] ?[address] ?[place] [address] ? Fluoroscopy Report ? Signed ? Patient: Torres,Renata ?MR#: [id number] ? : 2000 ?Acct:[id number] ? Age/Sex: 24 / F ?ADM Date: 02/19/25 ? Loc: HO.XRAY ? Attending Dr: Modesto Yoo MD ? Ordering Physician: Modesto Yoo MD ?? Date of Service: 12/27/24 ?? Procedure(s): FL upper GI w air ?? Accession Number(s): [id number] ? cc: Mary Doty MD; Modesto Yoo [...] DD/ 0936 ? TD/TT: 12/27/24 0948 ? [facility]: ? Procedure Note Donotuseinterpreter, Image - 12/29/[address] [address] Fluoroscopy Report Signed Patient: Renata TorresMR#: [id number] : 2000Acct:[id number] Age/Sex: 24 / FADM Date: 12/27/24 Loc: HO.XRAY Attending Dr: Modesto Yoo MD Ordering Physician: Modesto Yoo MD Date of Service: 12/27/24 Procedure(s): FL upper GI w air Accession Number(s): [id number] cc: Mary Doty MD; Modesto Yoo MD [...] Sage Cat MD 12/29/2024 09:35 AM EST Dictated By: Fernando Bergman Signed By: <Electronically signed by Fernando Bergman in OV> 12/29/24 0935 <Electronically signed by Sage Cat MD in OV> 12/29/2437 DD/ TD/TT: 12/27/24 0948 [facility]: [facility] External Provider IMG FLU OROSCOPY PROCEDURES Final Result * (ABNORMAL) Lipid Panel, Standard (10/25/2024 11:11 AM EST) Triglycerides 83 <150 mg/dL [facility] Comment:Desirable Triglyceri de: less than [...] 190 mg/dL HDL Cholesterol 36(L) >40 mg/dL [facility] Comment:Desirable HDL: great er than 40 mg/dL Note: This HDL assay may give artificially low results in patients with liver disease. 10/25/2024 11:1 1 AM EST 10/25/2024 11:11 AM EST Generic External Data Provider LAB BLOOD ORDERAB LES Final Result [facility] [address] [place] [address] [phone] * Hepatitis C Antibody with Reflex to HCV, RNA, Quantitative, Real-Time PCR (03/24/2024 2:34 PM EDT) Hepatitis C Antibody Nonreactive Nonreactive [facility] Comment:Antibodies to HCV no t detected; does not exclude early acuteHCV infection. Blood Venous blood specimen / Unknown 03/24/2024 2:34 PM EDT 03/24/2024 4:07 PM EDT Mary Culver MD LAB BLOOD ORDERAB LES Final Result Performing Organization Address [facility]/ZIP Co de Phone Number [facility] [address] [place] [address] [phone] * HIV-1/2 Antigen and Antibodies, Fourth Generation, with Reflexes (03/24/2024 2:34 PM EDT) Pathologist [facility] HIV AB/AG Nonreactive Nonreactive [facility] Comment:HIV-1 p24 Ag and/or HIV-1/HIV-2 Ab not detected.A test result that is nonreactive does not exclude thepossibility of exposure to or infection with HIV-1 and/orHIV-2. Nonreactive results in this assay for individualswith prior exposure to HIV-1 and/or HIV-2 may be due toantigen and antibody levels that are below the limit ofdetection of this assay.The [employer] HIV Ag/Ab Combo assay result andsupplemental assay results should be interpreted inconjunction with the patient's clinical presentation,history and other laboratory results. If the results areinconsistent with clinical evidence, additional testing issuggested to confirm the result. Blood Venous blood specimen / Unknown 03/24/2024 2:34 PM EDT 03/24/2024 4:07 PM EDT Mary Culver MD LAB BLOOD ORDERAB LES Final Result Performing Organization Address City/[facility]/ZIP Co de Phone Number [facility] [address] [place] [address] [phone] from Last 3 Months or Most Recently Relevant to Health Maintenance Insurance Care Teams Flue Cleaner Relationship Specialty Start Date End Date Mary Doty MD [address] [place] [phone] PCP - General Internal Medicine 02/23/24
--- OUTSIDE RECORDS SUMMARY | 2025-03-01 10:25 | XMS_ITS | Clinical Summary ---
Author Organization [facility] Address [address] [place] [address] Care Team Providers Care Teletypesetter Operator Name Role Phone Unavailable Primary Care Provider [...] - 2023-2 5 season) 2024 Influenza Vaccine (Season Ended) 2025 HIB Vaccines Aged Out No longer eligi [...] age to complete this topic Meningococcal B Vaccine Aged Out No l onger eligible based on patient's age to complete [...]
[2025-03-01 10:35] VITALS: BMI 33.5
== END 2025-03-01 10:48 | disposition home or self-care (01) ==
LOC: HO.HBS 09:28
PROVIDERS: PCP Student in an Organized Health Care Education/Training Program; Visit Provider Surgery
DX: E66.812 Obesity, class 2 (principal); E66.09 Other obesity due to excess calories; Z68.38 Body mass index [BMI] 38.0-38.9, adult
CPT/HCPCS: 99214

== ENCOUNTER 2025-03-05 15:53 | Outpatient (AMB) | payer OTHER, SELFPAY ==
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
--- OUTSIDE RECORDS SUMMARY | 2025-03-05 18:38 | XMS_ITS | Encounter Summary ---
Author Organization [employer] Address [address] [facility] 7t [place] [address] Care Team Providers Care Jewelry Polisher Name Role Phone Mary Doty MD Primary Care Pro vider Reason for Visit * Reason Comments Med Refill Encounter Details Date Type Department Care Team (Late st Contact Info) Description 12/07/2022 Refill [facility] MEDICINE [address] [place] [address] [phone] Name, MD Dariel [address] [place] [phone] Social History Tobacco Use Types Packs/Day Years [...] on filedocumented in this encounter Care Teams Jewelry Polisher Relationship Specialty Start Date End Date Mary Doty MD [address] [place], [place] [phone] PCP - General Internal Medicine 02/23/24 documented as of this encounter
--- OUTSIDE RECORDS SUMMARY | 2025-03-05 18:38 | XMS_ITS | Clinical Summary ---
Author Organization [employer] Address [address] [facility] [address] [place] [address] Care Team Providers Care Forest Fire Specialist Supervisor Name Role Phone Mary Doty MD [...] Team Description 01/19/2025 Population Health Risk Score [facility] (C3) Department [address] [phone] Provider, Population Health Generic 12/27/2024 Orders Only [facility] External Provider, [facility] 12/20/2024 Telephone [facility] [address] [place] [address] Mary Doty MD Care Management ([facility] Graduation) from Last 3 Months Immunizations [...] EST Narrative 12/29/2024 9:38 AM EST ? [facility] ?[address] ?[place] [address] ? Fluoroscopy Report ? Signed ? Patient: Torres,Renata ?MR#: [id number] ? : 2000 ?Acct:[id number] ? Age/Sex: 24 / F ?ADM Date: 02/19/25 ? Loc: HO.XRAY ? Attending Dr: Modesto Yoo MD ? Ordering Physician: Modesto Yoo MD ?? Date of Service: 12/27/24 ?? Procedure(s): FL upper GI w air ?? Accession Number(s): [id number] ? cc: Mary Doty MD; Modesto Yoo [...] ?? Dr. Cat ? Electronically signed by: ??Saeg Cat MD ??12/29/2024 09:35 AM EST RP ? Dictated By: ?Fernando Bergman ? Signed By: ?<Electronically signed by Fernando Bergman in OV> ? 12/29/24 0935 ?<Electronically signed by Sage Cat MD in OV> ? 12/29/24 0937 ? DD/ 0936 ? TD/TT: 12/27/24 0948 ? Wharf Tender: ? Procedure Note Donotuseinterpreter, Image - 12/29/[address] [address] Fluoroscopy Report Signed Patient: Renata TorresMR#: [id number] : 2000Acct:[id number] Age/Sex: 24 / FADM Date: 12/27/24 Loc: HO.XRAY Attending Dr: Modesto Yoo MD Ordering Physician: Modesto Yoo MD Date of Service: 12/27/24 Procedure(s): FL upper GI w air Accession Number(s): [id number] cc: Mary Doty MD; Modesto Yoo MD [...] in OV> 12/29/2437 DD/ TD/TT: 12/27/24 0948 Wharf Tender: [facility] External Provider IMG FLU OROSCOPY PROCEDURES Final Result * (ABNORMAL) Lipid Panel, Standard (10/25/2024 11:11 AM EST) Triglycerides 83 <150 mg/dL [facility] Comment:Desirable Triglyceri de: less than 150 mg/dLBorderline High Triglyceride 150-199 mg/dLHigh Triglyceride: 200-499 mg/dLVery High Triglyceride: greater than or equal to 5OO mg/dL Cholesterol 139 <200 mg/dL [facility] Comment:Desirable Cholestero l: less than 200 mg/dLBorderline High Cholesterol: 200-239 mg/dLHigh Cholesterol: greater than 239 mg/dL LDL Cholesterol Calculated 87 <100 mg/dL [facility] Comment:Desirable LDL: less than 100 mg/dLNear Optimal/Above Optimal LDL: 110- 129 mg/dLBorderline High LDL: 130-159 mg/dLHigh LDL: 160-189 mg/dLVery High LDL: greater than or equal to 190 mg/dL HDL Cholesterol 36(L) >40 mg/dL [facility] Comment:Desirable HDL: great er than 40 mg/dL Note: This HDL assay may give artificially low results in patients with liver disease. 10/25/2024 11:1 1 AM EST 10/25/2024 11:11 AM EST Generic External Data Provider LAB BLOOD ORDERAB LES Final Result [facility] [address] [place] [address] [phone] * Hepatitis C Antibody with Reflex to HCV, RNA, Quantitative, Real-Time PCR (03/24/2024 2:34 PM EDT) Hepatitis C Antibody Nonreactive Nonreactive [facility] Comment:Antibodies to HCV no t detected; does not exclude early acuteHCV infection. Blood Venous blood specimen / Unknown 03/24/2024 2:34 PM EDT 03/24/2024 4:07 PM EDT Mary Culver MD LAB BLOOD ORDERAB LES Final Result Performing Organization Address [facility]/ZIP Co de Phone Number [facility] [address] [place] [address] [phone] * HIV-1/2 Antigen and Antibodies, Fourth Generation, with Reflexes (03/24/2024 2:34 PM EDT) Pathologist [facility] HIV AB/AG Nonreactive Nonreactive [facility] Comment:HIV-1 p24 Ag and/or HIV-1/HIV-2 Ab not detected.A test result that is nonreactive does not exclude thepossibility of exposure to or infection with HIV-1 and/orHIV-2. Nonreactive results in this assay for individualswith prior exposure to HIV-1 and/or HIV-2 may be due toantigen and antibody levels that are below the limit ofdetection of this assay.The [employer] HIV Ag/Ab Combo assay result andsupplemental assay results should be interpreted inconjunction with the patient's clinical presentation,history and other laboratory results. If the results areinconsistent with clinical evidence, additional testing issuggested to confirm the result. Blood Venous blood specimen / Unknown 03/24/2024 2:34 PM EDT 03/24/2024 4:07 PM EDT Mary Culver MD LAB BLOOD ORDERAB LES Final Result Performing Organization Address City/[facility]/ZIP Co de Phone Number [facility] [address] [place] [address] [phone] from Last 3 Months or Most Recently Relevant to Health Maintenance Insurance Care Teams Forest Fire Specialist Supervisor Relationship Specialty Start Date End Date Mary Doty MD [address] [place] [phone] PCP - General Internal Medicine 02/23/24
--- OUTSIDE RECORDS SUMMARY | 2025-03-05 18:38 | XMS_ITS | Clinical Summary ---
Author Organization [facility] ity Address [address] [place] [address] Care Team Providers Care Line Manager Name Role Phone Unavailable Primary Care Provider [...]
== END 2025-03-05 16:26 | disposition home or self-care (01) ==
LOC: HO.HBST 15:53
PROVIDERS: PCP Student in an Organized Health Care Education/Training Program; Visit Provider Counselor Mental Health
DX: F41.9 Anxiety disorder, unspecified (principal); F33.9 Major depressive disorder, recurrent, unspecified
CPT/HCPCS: 90837

== ENCOUNTER 2025-04-13 09:57 | Emergency (ER) | payer MEDICAID, SELFPAY ==
--- NOTE | ~2025-04-13 | CT_ITS ---
EXAMINATION: CT ABDOMEN AND PELVIS WITH CONTRAST CLINICAL INFORMATION: Right lower quadrant abdominal pain. COMPARISON: 12/31/2023. TECHNIQUE: Multidetector volumetric images were obtained from the superior aspect of the liver through the pubic symphysis following administration 85 mL of Omnipaque 350 intravenous contrast. Sagittal and coronal reformatted images were obtained on the technologist's workstation. Oral contrast: No This CT examination was performed using dose optimization techniques as appropriate, variously including the following: *Automated exposure control *Adjustment of mA and/or kV according to patient size (this includes techniques or standardized protocols for targeted exams where dose is matched to indication/reason for exam; i.e. extremities or head) *Use of iterative reconstruction technique FINDINGS: LUNG BASES: The visualized lung bases are unremarkable. LIVER, GALLBLADDER, AND BILIARY TREE: The liver is normal in size, shape, and attenuation. No focal hepatic lesion or biliary ductal dilatation is present. The gallbladder is surgically absent. PANCREAS: Unremarkable. SPLEEN: Unremarkable. ADRENAL GLANDS: Unremarkable. KIDNEYS AND URETERS: The kidneys are normal in size, shape, and attenuation. No hydronephrosis, hydroureter, or calculi seen. No perinephric stranding. BLADDER: Suboptimally distended. Grossly normal. GASTROINTESTINAL TRACT: Normal appendix visualized. A few scattered diverticula noted involving the colon. The colon is completely decompressed throughout its course, limiting evaluation. There may be a mild degree of wall thickening although this is subjective. No gross hyperemia of the mesentery or gross mucosal hyperenhancement. No rectal abnormalities. ABDOMINAL WALL: No significant hernia is appreciated. LYMPH NODES: Normal. VASCULAR: Unremarkable. PELVIC VISCERA: The uterus and adnexa are unremarkable. OSSEOUS STRUCTURES: No suspicious lytic or blastic bone lesion. Normal appearance. CT/CT abdomen pelvis w IV con IMPRESSION: 1.The colon is completely decompressed throughout its course, limiting evaluation. There may be a mild degree of wall thickening although this is subjective. Correlate for signs and symptoms of colitis. 2. Otherwise, no active disease in the abdomen and pelvis. Electronically signed by: Sage Cat MD 04/13/2025 12:49 PM EDT
[2025-04-13 09:59] VITALS: BP 137/87; PULSE 106; RESP 20; TEMP 36.7; O2SAT 100; BMI 32.2
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
[2025-04-13 11:26] LABS: MANUAL DIFF FLAG NO
[2025-04-13 11:32] LABS: Basophils Percent Auto 0.5 % (0-2); Eosinophils Absolute Auto 0.2 X10*3/uL (0.0-0.4); Eosinophils Percent Auto 2.1 % (0-4); Hematocrit 44.5 % (37.0-47.0); Hemoglobin 15.1 g/dl (12.0-16.0); Imm Gran Abs Auto 0.02 X10*3/uL (0.00-0.03); Imm Gran Pct Auto 0.2 % (0.0-0.4); Lymphocytes Absolute Auto 1.7 X10*3/uL (1.2-4.9); Lymphocytes Percent Auto 19.3 % (20-40); Mean Corpuscular HGB Conc 33.9 g/dl (31.0-35.0); Mean Corpuscular Hemoglobin 28.5 pg (27.0-33.0); Mean Corpuscular Volume 84.1 fL (80.0-98.0); Mean Platelet Volume 10.2 fL (9.4-12.3); Monocytes Absolute Auto 0.5 X10*3/uL (0.1-1.2); Monocytes Percent Auto 5.3 % (2-11); Neutrophils Absolute Auto 6.3 x10*3/uL (2.0-8.3); Neutrophils Percent Auto 72.6 % (45-73); Platelet Count 264 X10*3/uL (160-400); Red Blood Count 5.29 X10*6/uL (4.20-5.50); Red Cell Distribution Width 12.8 % (11.0-16.0); White Blood Count 8.6 X10*3/uL (4.8-10.8)
[2025-04-13 11:51] LABS: Alanine Aminotransferase 21 U/L (0-31); Albumin Level 4.8 g/dL (3.5-5.0); Anion Gap 15 (12-20); Aspartate Amino Transferase 21 U/L (5-31); Bilirubin Direct 0.2 mg/dL (0.0-0.5); Bilirubin Total 0.7 mg/dL (0.0-1.0); Blood Urea Nitrogen 13 mg/dL (9-16); Calcium 9.9 mg/dL (8.4-10.2); Carbon Dioxide 21 mmol/L (22-29); Chloride 112 mmol/L (96-108); Creatinine Clr Calc Pharmacy 133.4; Estimated Glomerular Filt Rate > 60; Glucose Random 106 mg/dL (60-115); Lipase 30 U/L (8-78); Potassium 3.8 mmol/L (3.3-5.1); Sodium 144 mmol/L (135-145); Total Protein 7.4 g/dL (6.5-8.0)
[2025-04-13 11:56] LABS: Alkaline Phosphatase 88 U/L (39-117)
[2025-04-13 12:02] LABS: HCG Quantitative < 2 mIU/mL
--- OUTSIDE RECORDS SUMMARY | 2025-04-13 12:02 | XMS_ITS | Encounter Summary ---
Author Organization [employer] Address [address] [facility] [address] [place] [address] Care Team Providers Care Database Management Specialist Name Role Phone Mary Doty MD Primary Care Pro vider Encounter Details Date Type Department Care Team (Late st Contact Info) Description 04/13/2025 Orders Only GENERIC EXTERNAL DATA DEPARTMENT Provider, Generic External Data Social History Tobacco Use Types Packs/Day Years [...] as of this encounter Plan of Treatment Upcoming Encounters Date Type Department Care Team (Late st Contact Info) Description 06/12/2025 1:15 PM EDT Office Visit [facility] [address] [place] [address] [phone] Mary Doty MD [address] [place], [place] [phone] documented as of this encounter Procedures Procedure Name Priority Date/Time Associated Diagnosis Comments CBC WITH AUTO DIFFERENTIAL Routine 04/13/2025 11:08 AM EDT documented in this encounter Results * (ABNORMAL) CBC auto differential (04/13/2025 11:08 AM EDT) White Blood Count 8.6 4.8 - 10.8 X10*3/uL [facility] Red Blood Count 5.29 4.20 - 5.50 X10*6/uL [facility] Hemoglobin 15.1 12.0 - 16.0 g/dl [facility] Hematocrit 44.5 37.0 - 47.0 % [facility] Mean Corpuscular Volume 84.1 80.0 - 98.0 fL [facility] Mean Corpuscular Hemoglobin 28.5 27.0 - 33.0 pg [facility] Mean Corpuscular HGB Conc 33.9 31.0 - 35.0 g/dl [facility] Red Cell Distribution Width 12.8 11.0 - 16.0 % [facility] Platelet Count 264 160 - 400 X10*3/uL [facility] Mean Platelet Volume 10.2 9.4 - 12.3 fL [facility] Neutrophils Percent Auto 72.6 45 - 73 % [facility] Imm Gran Pct Auto 0.2 0.0 - 0.4 % [facility] Lymphocytes Percent Auto 19.3(L) 20 - 40 % [facility] Monocytes Percent Auto 5.3 2 - 11 % [facility] Eosinophils Percent Auto 2.1 0 - 4 % [facility] Basophils Percent Auto 0.5 0 - 2 % [facility] NRBC Pct Auto 0.0 0.0 - 0.2 /100WBC [facility] Neutrophils Absolute Auto 6.3 2.0 - 8.3 x10*3/uL [facility] Imm Gran Abs Auto 0.02 0.00 - 0.03 X10*3/uL [facility] Lymphocytes Absolute Auto 1.7 1.2 - 4.9 X10*3/uL [facility] Monocytes Absolute Auto 0.5 0.1 - 1.2 X10*3/uL [facility] Eosinophils Absolute Auto 0.2 0.0 - 0.4 X10*3/uL [facility] Basophils Absolute Auto 0.0 0.0 - 0.2 X10*3/uL [facility] NRBC Abs Auto 0.000 0.0 - 0.012 X10*3/uL [facility] 04/13/2025 11:0 8 AM EDT 04/13/2025 11:22 AM EDT us Generic External Data Provider LAB BLOOD ORDERAB LES Final Result [facility] [address] [place] [address] [phone] documented in this encounter Visit Diagnoses Not on filedocumented in this encounter Additional Health Concerns Assessment Noted Time PHQ-9 Depression Total Score: 16 04/17/2 024 9:19 AM EDT documented as of this encounter Care Teams Database Management Specialist Relationship Specialty Start Date End Date Mary Doty MD [address] [place] [phone] PCP - General Internal Medicine 02/23/24 documented as of this encounter
[2025-04-13 12:18] LABS: Appearance Urine Hazy; Color Urine Yellow; Glucose Urine UA Negative (Negative); Leukocyte Esterase Urine Negative (Negative); Nitrite Urine Negative (Negative); UMIC TRIGGER UACC YES; Urine Blood Small (1+) (Negative); Urine Ketones Trace mg/dL (Negative); Urine Protein 30 (1+) mg/dL (Neg-Trace)
[2025-04-13] MEDS: iohexoL 350 MG/ML 100 ML INFUS..BTL IV (12:36)
[2025-04-13] MEDS: ondansetron HCL 4 MG/2 ML VIAL IVPUSH (12:44)
[2025-04-13] MEDS: Famotidine/PF 20 MG/2 ML VIAL IVPUSH (12:44)
[2025-04-13 13:06] LABS: Bacteria Urine 2+ (None Seen); Squamous Epithelial Cell Urine >20 /HPF (0-2); UACC Culture Trigger YES
[2025-04-13 13:14] VITALS: BP 149/85; PULSE 72; RESP 16; O2SAT 100
[2025-04-13 13:22] VITALS: BP 149/85; PULSE 72; RESP 16; TEMP 36.6; O2SAT 100
== END 2025-04-13 13:22 | disposition home or self-care (01) ==
PROVIDERS: Emergency Provider Emergency Medicine; PCP Student in an Organized Health Care Education/Training Program
DX: K29.00 Acute gastritis without bleeding (principal); R10.2 Pelvic and perineal pain; R10.31 Right lower quadrant pain; R11.2 Nausea with vomiting, unspecified; M54.50 Low back pain, unspecified; Z79.899 Other long term (current) drug therapy
CPT/HCPCS: 36415; 74177; 80053; 81001; 82248; 83690; 83735; 84702; 85025; 87086; 96374; 96375; 99283; 99284; J1308; J2405; Q9967

== ENCOUNTER → 2025-04-13 11:35 | Outpatient (BNV) | payer MEDICAID, SELFPAY | PROVIDERS: Emergency Provider Emergency Medicine; PCP Student in an Organized Health Care Education/Training Program; Visit Provider Radiology Diagnostic Radiology | DX: R10.31 Right lower quadrant pain (principal) | CPT/HCPCS: 74177 ==

== ENCOUNTER 2025-10-19 10:04 | Emergency (ER) | payer MEDICAID, SELFPAY ==
--- NOTE | ~2025-10-19 | CT_ITS ---
EXAMINATION: CT ABDOMEN AND PELVIS WITH CONTRAST CLINICAL INFORMATION: Abdominal pain. COMPARISON: April 13, 2025. TECHNIQUE: Multidetector volumetric images were obtained from the superior aspect of the liver through the pubic symphysis following administration 85 mL of Omnipaque 350 intravenous contrast. Sagittal and coronal reformatted images were obtained on the technologist's workstation. Oral contrast: No This CT examination was performed using dose optimization techniques as appropriate, variously including the following: *Automated exposure control *Adjustment of mA and/or kV according to patient size (this includes techniques or standardized protocols for targeted exams where dose is matched to indication/reason for exam; i.e. extremities or head) *Use of iterative reconstruction technique DLP: 558 mGy-cm FINDINGS: LUNG BASES: No acute airspace disease or gross pulmonary nodules. LIVER, GALLBLADDER, AND BILIARY TREE: 15 cm. Focal hypodensity adjacent to the falciform ligament. No enhancing mass. Mild intrahepatic biliary ductal dilatation. Main portal veins, hepatic veins and intrahepatic portion of the IVC are patent. Status post cholecystectomy. Common bile duct measures 4 mm. PANCREAS: No solid or cystic mass. No peripancreatic fluid collections. No main pancreatic ductal dilatation. SPLEEN: 9 cm. No solid or cystic mass. ADRENAL GLANDS: No nodular lesions. KIDNEYS AND URETERS: No hydronephrosis. No gross nephrolithiasis. No enhancing renal mass. The ureters are not dilated. BLADDER: Fluid-filled. GASTROINTESTINAL TRACT: Appendix is normal. Gas and fluid-filled prominent small bowel loops. No air-fluid levels. Apparent intestinal wall thickening, rectosigmoid colon junction. No pneumatosis intestinalis. Abundant stool. No ascites. No pneumoperitoneum.. ABDOMINAL WALL: No umbilical hernia. LYMPH NODES: [Prominent less than 10 mm mesenteric and retroperitoneal lymph nodes. VASCULAR: Prominent pelvic vessels in the right. No aneurysm or dissection abdominal aorta. No gross calcified plaques. PELVIC VISCERA: No gross masses. OSSEOUS STRUCTURES: Spondylolysis pars interarticularis at L5-S1 without anterolisthesis. Sclerosis and the sacroiliac joints. CT/CT abdomen pelvis w IV con IMPRESSION: Consider enteritis and questionable inflammatory bowel disease at the rectosigmoid colon. Inflammatory bowel disease such as Crohn's disease cannot be entirely excluded. 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 Fleischner guidelines were followed. Electronically signed by: Jatinder Desouza MD 10/19/2025 12:45 PM EST
[2025-10-19 10:07] VITALS: BP 129/65; PULSE 88; RESP 18; TEMP 36.6; O2SAT 100
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
[2025-10-19 10:28] LABS: MANUAL DIFF FLAG NO
[2025-10-19 10:29] LABS: Hematocrit 48.7 % (37.0-47.0); Hemoglobin 16.0 g/dl (12.0-16.0); Imm Gran Abs Auto 0.01 X10*3/uL (0.00-0.03); Imm Gran Pct Auto 0.1 % (0.0-0.4); Lymphocytes Absolute Auto 2.1 X10*3/uL (1.2-4.9); Mean Corpuscular HGB Conc 32.9 g/dl (31.0-35.0); Mean Corpuscular Hemoglobin 28.7 pg (27.0-33.0); Mean Corpuscular Volume 87.3 fL (80.0-98.0); NRBC Abs Auto 0.000 X10*3/uL (0.0-0.012); NRBC Pct Auto 0.0 /100WBC (0.0-0.2); Platelet Count 261 X10*3/uL (160-400); Red Blood Count 5.58 X10*6/uL (4.20-5.50); White Blood Count 7.6 X10*3/uL (4.8-10.8)
[2025-10-19 10:38] LABS: Appearance Urine Clear; Glucose Urine UA Negative (Negative); PH 5.5 (5.0-9.0); Specific Gravity - Urine >= 1.030 (1.005-1.025); UMIC TRIGGER UACC YES
[2025-10-19 10:46] LABS: Alanine Aminotransferase 23 U/L (0-31); Albumin Level 4.7 g/dL (3.5-5.0); Alkaline Phosphatase 75 U/L (39-117); Anion Gap 10 (12-20); Aspartate Amino Transferase 21 U/L (5-31); Blood Urea Nitrogen 14 mg/dL (9-16); Calcium 9.9 mg/dL (8.4-10.2); Carbon Dioxide 28 mmol/L (22-29); Chloride 108 mmol/L (96-108); Creatinine Clr Calc Pharmacy 124.5; Estimated Glomerular Filt Rate > 60; Magnesium 2.0 mg/dL (1.6-2.6); Potassium 3.8 mmol/L (3.3-5.1); Sodium 142 mmol/L (135-145); Total Protein 7.6 g/dL (6.5-8.0)
[2025-10-19 11:17] LABS: Resp Syncy Virus RNA Qual PCR NEGATIVE (Negative); SARS COV2 PCR INHOUSE NEGATIVE (Negative)
--- NOTE | 2025-10-19 11:34 | PC.NURSE ---
PT bedded to ruth bed and seen by provider. Pt c/o abd pain mid abd bilat 03/17. No N/V/D at this time but has hx of daily vomiting in am. VSS NAD
[2025-10-19 12:00] VITALS: BP 120/60; O2SAT 98
[2025-10-19] MEDS: iohexoL 350 MG/ML 100 ML INFUS..BTL IV (12:04)
[2025-10-19 14:19] LABS: Lipase 30 U/L (8-78)
[2025-10-19 14:20] VITALS: BP 120/60; PULSE 88; RESP 16; TEMP 36.6; O2SAT 98
== END 2025-10-19 14:25 | disposition home or self-care (01) ==
PROVIDERS: Physician Assistant; Physician Assistant Medical; Emergency Provider Emergency Medicine; PCP Student in an Organized Health Care Education/Training Program
DX: K52.9 Noninfective gastroenteritis and colitis, unspecified (principal); R10.11 Right upper quadrant pain; J45.909 Unspecified asthma, uncomplicated; Z03.818 Encounter for observation for suspected exposure to other biological agents ruled out; Z79.899 Other long term (current) drug therapy
CPT/HCPCS: 36415; 74177; 80053; 81001; 83690; 83735; 84702; 85025; 87637; 99284; Q9967

== ENCOUNTER → 2025-10-19 11:18 | Outpatient (BNV) | payer MEDICAID, SELFPAY | PROVIDERS: Emergency Provider Emergency Medicine; PCP Student in an Organized Health Care Education/Training Program; Visit Provider Radiology Diagnostic Radiology | DX: M43.07 Spondylolysis, lumbosacral region (principal) | CPT/HCPCS: 74177 ==